=== PATIENT | male | born 1960 | race Caucasian/White ===

== ENCOUNTER 2016-03-31 14:45 | Inpatient (IN) | payer BC ==
[~2016-03-31] VITALS: Ht 177.8 cm; Wt 102.0 kg
[2016-03-31] MEDS ORDERED: ONDANSETRON 4MG/2ML VIAL (J2405) As Ordered ONE (15:37)
[2016-03-31] MEDS ORDERED: ISOVUE-370 76% 100ML VIAL (Q9967) As Ordered ONE (15:49)
[2016-03-31 15:52] LABS: BASO # 0.1 K/mm3 (0.0-0.2); BASO % 0.7 % (0.0-1.0); EOS # 0.2 K/mm3 (0.0-0.50); EOS % 1.7 % (0.0-3.0); LARGE UNSTAINED CELL # 0.1 K/mm3 (0.0-0.4); LARGE UNSTAINED CELL % 0.9 % (0.0-4.0); LYMPH # 1.3 K/mm3 (1.5-4.5); LYMPH % 14.7 % (24.0-44.0); MEAN CORPUSCULAR HEMOGLOBIN 29.6 pg (27.0-33.0); MEAN CORPUSCULAR HGB CONC 34.9 g/dl (32.0-36.5); MEAN CORPUSCULAR VOLUME 84.8 fl (80.0-96.0); MONO # 0.5 K/mm3 (0.0-0.8); MONO % 5.5 % (0.0-5.0); NEUTROPHILS # 6.8 K/mm3 (1.8-7.7); NEUTROPHILS % 76.5 % (36.0-66.0); PLATELET COUNT, AUTOMATED 192 k/mm3 (150-450); RED CELL DISTRIBUTION WIDTH 12.3 % (11.5-14.5); WHITE BLOOD COUNT 8.9 K/mm3 (4.0-10.0)
[2016-03-31 15:58] LABS: INR 1.03
[2016-03-31 16:21] LABS: ALBUMIN 3.9 GM/DL (3.2-5.2); ALBUMIN/GLOBULIN RATIO 1.39 (1.00-1.93); ALKALINE PHOSPHATASE 47 U/L (45-117); ALT/SGPT 35 U/L (12-78); ANION GAP 9 MEQ/L (8-16); AST/SGOT 26 U/L (15-37); BILIRUBIN,DIRECT 0.1 MG/DL (0.0-0.2); BILIRUBIN,TOTAL 0.7 MG/DL (0.2-1.0); BLOOD UREA NITROGEN 20 MG/DL (7-18); CALCIUM LEVEL 8.2 MG/DL (8.5-10.1); CARBON DIOXIDE LEVEL 27 MEQ/L (21-32); CHLORIDE LEVEL 105 MEQ/L (98-107); CREATININE FOR GFR 1.23 MG/DL (0.70-1.30); GLOMERULAR FILTRATION RATE > 60.0 (>56); GLUCOSE, FASTING 130 MG/DL (70-105); SODIUM LEVEL 141 MEQ/L (136-145); TOTAL PROTEIN 6.7 GM/DL (6.4-8.2)
--- NOTE | 2016-03-31 16:24 | REP ---
CT Head without contrast HISTORY: Trauma COMPARISON: None There is no intraparenchymal hemorrhage, acute infarct, mass or midline shift. The ventricular system is normal in appearance. There is no extra cerebral collection. There is no fracture. The visualized sinuses are clear. IMPRESSION: There is no intracranial lesion. Signed by Francois Lund MD 03/31/2016 04:16 P
[2016-03-31] MEDS ORDERED: ACETAMINOPHEN 325 MG TAB As Ordered ONE (17:41)
[2016-03-31] MEDS ORDERED: PERCOCET 5MG/325MG TAB PO PRN (18:00)
[2016-03-31] MEDS ORDERED: ALBUTEROL 90 MCG/ACT 8GM HFA INHALER INH PRN (18:00)
[2016-03-31] MEDS ORDERED: ONDANSETRON 4MG/2ML VIAL (J2405) IV PRN (18:00)
[2016-03-31] MEDS ORDERED: ALBU17IN INH (18:12)
[2016-03-31] MEDS ORDERED: IBUPOTC PO (18:12)
[2016-03-31] MEDS ORDERED: DRIS50002 PO (18:12)
--- NOTE | 2016-03-31 18:23 | REP ---
CT abdomen pelvis performed with IV contrast 03/31/2016 Indication: Fall, back pain Comparison: None Findings: Small amount of bibasilar atelectasis and/or scarring is noted. 9 mm hyperdense focus within the right dome of liver suggests small area of focal fatty sparing, possibly atypical hemangioma. Spleen, pancreas are unremarkable. Gallbladder is contracted without visualized stones or biliary dilatation. Adrenal glands are normal. Kidneys are without hydronephrosis or obstructing ureteral calculi bilaterally. There are no intrarenal masses or cysts. Stomach is moderately distended with ingested material and air. Small bowel is without obstruction. The terminal ileum and the appendix are normal. Abdominal aorta is of normal course and caliber there are no pathologically enlarged retroperitoneal nodes Bladder prostate is normal. There is moderate retained stool within the colon and scattered colonic diverticuli. There is no free air or ascites. The lower thoracic spine to include T9-T12, as well as lumbosacral spine and coccyx are without acute fracture or displacement. There is no pelvic fracture, or pelvic diastases the hips are without fracture or dislocation. Impression: No acute intra-abdominal or pelvic pathology Abdominal aorta without aneurysm, dissection, or adjacent retroperitoneal hematoma. Moderate gastric distension. Moderate retained colonic stool. No evidence of lower thoracic lumbosacral spine fracture. Pelvis without fracture, pelvic diastasis or dislocation. 10 mm hyperdense focus within the right dome of liver. Differential diagnosis includes small atypical cavernous hemangioma, hepatic adenoma. Recommend follow up gallbladder ultrasound Signed by Barbara Long MD 03/31/2016 06:15 P
--- NOTE | 2016-03-31 18:29 | HPE ---
DATE OF ADMISSION: 03/31/2015 PRIMARY CARE PHYSICIAN: Teresa Colorado at [facility]. CHIEF COMPLAINT: "I fell out of my truck." SUMMARY OF PRESENTATION: This 56-year-old gentleman was feeling fine when he awoke at 6 a.m. this morning. He was to work by approximately 7. 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 Around 1-1:30 this afternoon, he was climbing out of his cab. He turned as he heard some people talking and wanted to go to see them, was stepping out of his cab, and lost his balance. He remembers falling backward, landing on his backside, and then the remainder of his torso springing to the ground and cracking his head on a concrete floor. His feet were about 3-4 feet off the ground when he fell. Prior to the fall, he had no chest pain, no palpitations, no focal weakness, no unusual tastes or smells. He remembers everything that happened, although he does not suffer from falls and says he has a good sense of balance. ALLERGIES: No known drug allergies. MEDICATIONS AT HOME: Occasional albuterol inhaler and vitamin D supplement. PAST MEDICAL HISTORY: Notable for vitamin D deficiency and what is described as early emphysema. No surgical history. SOCIAL HISTORY: He quit smoking 17 years ago. He also has quit alcohol. He formerly smoked heavily and drank heavily. He is from [facility]. He works for the [employer] in [place]. FAMILY HISTORY: Notable for a mother who is 82, alive and well, a father who in his late 70s or early 80s with emphysema. REVIEW OF SYSTEMS: Notable for a headache currently. He has some photophobia. No runny nose. No sore throat. Not describing neck pain. No shortness of breath. He has had cough for about a month which he says is somewhat chronic. He does produce some sputum intermittently. No palpitations. No orthopnea. No paroxysmal nocturnal dyspnea. No abdominal pain. No change in bowel or bladder habits. Otherwise unremarkable. PHYSICAL EXAMINATION: VITAL SIGNS: Blood pressure is 134/80, pulse 75, respiratory rate 18, temperature 98.6, 96% on room air. Weight is 97.5 kg, with a body mass index of 30.8. GENERAL: He is awake, appropriately interactive. Pleasantly conversant. HEENT: Head is normocephalic. Sinuses are nontender. Pupils equal, round, and reactive. Anicteric. Not injected. Nasal septum is midline. Mucous membranes are moist. There is no tenderness to his mandible and temporomandibular joint (TMJ) or sinuses, his posterior skull and cervical spine. He has full range of motion of the neck. LUNGS: Breathing is symmetrical and rested. HEART: Regular rate and rhythm. Normal S1, S2. Electrocardiogram (EKG) shows a normal sinus rhythm. ABDOMEN: Soft, doughy, nontender. There is no tenderness over his pelvis, his hips bilaterally. There is no thoracic or lumbar spine tenderness. There is no sacral tenderness. There is no bruising noted. EXTREMITIES: He is moving all four extremities. NEUROLOGIC: Cranial nerves II through XII are grossly intact. PSYCHIATRIC: He has a somewhat flattened affect. LABORATORY DATA: White cell count is 8.9, hemoglobin 15.7, platelets of 192. INR is 1.03. Sodium is 141, potassium 4.0, chloride 105, carbon dioxide 27, BUN 20, creatinine 1.23, calcium 8.2. IMAGING: CT of the abdomen and pelvis with contrast shows a 10 mm hyperdense focus in the right dome of the liver. No acute intra-abdominal or pelvic pathology. Moderate gastric distention. Moderate retained colonic stool. No evidence of lower thoracic, lumbosacral or spinal fracture. No pelvic fracture or dislocation. Chest x-ray showed no acute disease. Head CT showed no acute disease. C-spine x-ray shows no acute disease. CT of maxillofacial without contrast shows no acute disease. ASSESSMENT: This is a 56-year-old with a fall, trauma and concussion. PLAN: 1. Concussion. The patient will be monitored overnight on telemetry. I believe the cause of the fall was mechanical and that his memory of the fall may be limited by his injury to his head. We will monitor him overnight. There are no signs or symptoms of other more insidious causes of fall. We will do neurologic checks. We will pursue an MRI to look for occult areas of brain injury apart from bleeding. Any pain that he is experiencing will be treated with opiates and Tylenol. 2. Deep venous thrombosis (DVT) prophylaxis will be determined in the morning. Hopefully, it will just be ambulation. 3. The patient has a history of emphysema. We will make albuterol available as needed. 4. The patient has vitamin D deficiency. He can continue his weekly vitamin D at home.
[2016-03-31] MEDS ORDERED: PERCOCET 5MG/325MG TAB As Ordered ONE (19:26)
--- NOTE | 2016-03-31 19:32 | REP ---
SINGLE VIEW CHEST: COMPARISON: 05/09/2011 There is no evidence of acute infiltrate. No pleural effusion is seen. The heart is normal in size. The mediastinal silhouette is unremarkable. The visualized osseous structures are intact. IMPRESSION: No acute pulmonary disease. Signed by Aldo Liriano MD 04/01/2016 05:15 P
--- NOTE | 2016-03-31 19:50 | REP ---
MAXILLOFACIAL CT WITHOUT CONTRAST: HISTORY: Trauma. Minimal mucosal thickening is present in the right ethmoid and frontal sinuses. The remaining sinuses are clear. The ostiomeatal units are patent. The middle and inferior nasal turbinates are partially paradoxical. There is jens bullosa of the left middle nasal turbinate. There is minimal deviation of the nasal septum to the right. The cribriform plate, medial bond of the orbits and optic canals are intact. The carotid canals form a segment of the posterolateral bond of the sphenoid sinus. There is no fracture. IMPRESSION: Sinus mucosal thickening as described above. Signed by Francois Lund MD 03/31/2016 07:52 P
--- NOTE | 2016-03-31 19:58 | REP ---
CT CERVICAL SPINE WITHOUT CONTRAST: HISTORY: Trauma. There is no acute fracture or subluxation. Disc bulges are present at the C3-4 and C4-5 levels. A disc bulge with associated osteophyte formation is present at the C5-6 level. There is minimal narrowing of the spinal canal. Uncinate process hypertrophy is present at the C5-6 level. This produces mild and minimal narrowing of the right and left C5 neural foramina respectively. The remaining neural foramina are patent. The C5-6 intervertebral disc is decreased in height consistent with disc degeneration. IMPRESSION: 1. There is no acute fracture or subluxation. 2. There is cervical spondylosis at the C3-4 through C5-6 levels. Signed by Francois Lund MD 04/01/2016 08:17 A
--- NOTE | 2016-03-31 20:13 | EDDOCDS ---
Physician Documentation [facility] Name: Vj Andino Age: 56 yrs Sex: Male : 1960 Arrival Date: 03/31/2016 Time: 14:45 Bed MRI Private MD: Disposition: 03/31/16 17:20 Hospitalization ordered by Julio Ardon for Inpatient Admission. Preliminary diagnosis are Syncope and collapse, Fall (on) (from) unspecified stairs and steps, Concussion with loss of consciousness of unspecified duration, Low back pain. - Bed requested for PCU. - Status is Inpatient Admission. mar - Condition is Stable. - Problem is new. - Symptoms are unchanged. Historical: - Allergies: No known drug Allergies; - Home Meds: 1. Vitamin D Oral Unknown weekly - PMHx: vitamin D deficiancy; - PSHx: none; - Social history: Smoking status: Patient states former smoker of tobacco. No barriers to communication noted, The patient speaks fluent Canadian, Speaks appropriately for age. - Family history: Not pertinent. - : The pt / caregiver states he / she is not on anticoagulants. Home medication list is obtained from the patient. - Exposure Risk Screening:: None identified. Vital Signs: 03/31 15:13 BP 134 / 80; Pulse 75; Resp 18; Temp 98.6(TE); Pulse Ox 96% on R/A; Weight 97.52 kg / dem1 214.99 lbs; Height 5 ft. 10 in. (177.80 cm); Pain 6/10; 19:50 BP 128 / 71; Pulse 70; Resp 16; Pulse Ox 100% on 2 lpm NC; Pain 8/10; cf2 20:03 BP 132 / 78; Pulse 72; Resp 16; Temp 98.0; Pulse Ox 99% on 2 lpm NC; Pain 4/10; cf2 20:05 BP 118 / 74 RA Supine (auto/lg); Pulse 88; Resp 16; Temp 97.6; Pulse Ox 92% on R/A; rs6 15:13 Body Mass Index 30.85 (97.52 kg, 177.80 cm) dem1 20:05 pt states that he is not in pain for 0-10 scale "just doesn't feel good and am really rs6 dizzy" MDM: 15:27 IV Saline Lock ordered. ml 15:27 Seizure Precautions ordered. ml 15:28 CT Head Without Contrast Ordered. EDMS 15:28 CT Spine,Cervical W/o Contrast Ordered. EDMS 15:28 CBC with Diff Ordered. EDMS 15:28 MED Profile Ordered. EDMS 15:28 PT/INR Ordered. EDMS 15:28 PTT Ordered. EDMS 15:28 CIP Ordered. EDMS 15:28 Troponin Ordered. EDMS 15:28 Undress patient ordered. ml 15:28 Misc. Nursing Order ordered. ml 15:28 Chest, 1 View Ordered. EDMS 15:29 Type & Screen Ordered. EDMS 15:29 ECG WITH READING ER PHYS+CARDIAG ordered. EDMS 15:29 NS 0.9% 1000 ml IV at 80 mL/hr continuous ordered. ml 15:29 Ondansetron 4 mg IVP once ordered. ml 15:30 CT Maxilofacial W/out Contrast Ordered. EDMS 15:48 CT ABD & PELVIS: IV Contrast Only Ordered. EDMS 15:52 LIVER PROFILE Ordered. EDMS 16:29 CBC with Diff Reviewed. ml 16:29 MED Profile Reviewed. ml 16:29 PT/INR Reviewed. ml 16:29 PTT Reviewed. ml 16:29 CIP Reviewed. ml 16:29 Troponin Reviewed. ml 16:29 LIVER PROFILE Reviewed. ml 16:47 Type & Screen Reviewed. ml 16:47 CT Head Without Contrast Reviewed. ml 17:17 Acetaminophen Tablet 650 mg PO once ordered. ml 17:50 Admission / Observation Status ordered. EDMS 17:50 REGULAR DIET ordered. EDMS 18:09 MRI Brain without Contrast Ordered. EDMS 19:31 COMPLETE BLOOD COUNT Ordered. EDMS 19:31 COMPLETE COMPHRENSIVE METABOLI Ordered. EDMS 19:31 MAGNESIUM LEVEL Ordered. EDMS 19:32 Financial registration complete. gjb 19:35 [facility] Payment Agreement was scanned into [employer] and attached to record. gjb 19:46 oxyCODONE-acetaminophen 5 mg-325 mg 2 tabs PO once ordered. cf2 Administered Medications: 15:43 Drug: NS 0.9% 1000 ml [sodium chloride 0.9 % injection solution] Route: IV; Rate: 80 dsf mL/hr; Site: left antecubital; 15:43 Drug: Ondansetron 4 mg [ondansetron HCl 2 mg/mL intravenous solution (2 mL)] Route: dsf IVP; Site: left antecubital; 17:50 Drug: Acetaminophen 650 mg [acetaminophen 325 mg tablet (2 tabs)] Route: PO; dsf 19:46 Drug: oxyCODONE-acetaminophen 2 tabs [oxycodone-acetaminophen 5 mg-325 mg tablet (2 cf2 tabs)] Route: PO; 19:46 Follow up: Response: Pain is decreased cf2 Signatures: Dispatcher [employer] EDMS Larisa Amezquita MD MD ml Mariam Chavez, RN RN Ekta Guillory, [employer] ml3 Nicole North RN RN hs1 Talisha Lopez Christina, RN RN cf2 Jes Zamora RN f The chart was reviewed and I authenticate all verbal orders and agree with the evaluation and treatment provided.Corrections: (The following items were deleted from the chart) 15:50 15:29 LIVER PROFILE+LAB ordered. EDMS EDMS 17:24 15:30 Pelvis+XR ordered. EDMS EDMS Attachments: 19:35 [facility] Payment Agreement [email or web address]
--- NOTE | 2016-03-31 20:13 | EDDOCDS ---
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 Pt fall unwitnessed and he remembers waking up yelling for help. Pt reports pain in tailbone. EMS state patient was immobilized prior to EMS arrival. Unable to obtain IV in field. Pt reports previous injury to tail bone and feels could be re injury. Adult Sepsis Screening: The patient does not have new or worsening altered mentation. Patient's respiratory rate is less than 22. Systolic blood pressure is greater than 100. Patient has a qSOFA score of 0- Negative Sepsis Screen. Suicide/Homicide risk assessment- the patient denies having any suicidal and/or homicidal ideations and does not present with any other emotional, behavioral or mental health complaints. Status: Patient is not a services clerk or dependent. Transition of care: patient was not received from another setting of care. 14:51 Acuity: XIMENA Level 3 hs1 14:51 Method Of Arrival: Ambulance hs1 Triage Assessment: 14:56 General: Appears in no apparent distress, Behavior is appropriate for age, cooperative. hs1 Pain: Location: scalp and buttocks Pain currently is 6 out of 10 on a pain scale. Pain: Quality of pain is described as "feels like a broke it again ". Neurological: Level of Consciousness is awake, alert, obeys commands, Oriented to person, place, time. Cardiovascular: No deficits noted. Respiratory: Airway is patent Respiratory effort is even, unlabored, Respiratory pattern is regular, symmetrical. GI: Reports nausea. Derm: Skin is pink, warm & dry. normal. 20:06 Pt Declines HIV testing. cf2 Historical: - Allergies: No known drug Allergies; - Home Meds: 1. Vitamin D Oral Unknown weekly - PMHx: vitamin D deficiancy; - PSHx: none; - Social history: Smoking status: Patient states former smoker of tobacco. No barriers to communication noted, The patient speaks fluent Lithuanian, Speaks appropriately for age. - Family history: Not pertinent. - : The pt / caregiver states he / she is not on anticoagulants. Home medication list is obtained from the patient. - Exposure Risk Screening:: None identified. Screenin:07 Screening information is obtained from the patient. Fall risk: At risk due to gait cf2 disturbance, prior history of falls, dizziness. Assistance ADL's: Requires assistance with dressing, assistance is provided by ambulation, assistance is provided by. Abuse/DV Screen: The patient / caregiver reports he/she is: not in a situation that causes fear, pain or injury. Nutritional screening: No deficits noted. Advance Directives: Further advance directive information is declined. home support is adequate. Assessment: 15:08 General: Pt log rolled maintaining C spine precautions and back board removed. Pt hs1 states feeling much better not that he is off the board. Back board noted to have blood where patients back of head was. unknown injury to head at this time. . 15:42 General: Called to patient's bedside by Dr. Liriano. Per Dr. Liriano she was concerned that [facility] patient would have a seizure because patient went from normal skin color to being pale in color, remains alert and oriented x 3. In to assess patient, patient reported that he just didn't feel right. Patient noted to be shakey. Remained with patient and transported patient to C4 per Service Car Operator Dominga Cherry RN and Dr. Liriano. While in C4, IV line started in right antecubital and labs drawn, arrived and updated to current situation and relayed message through charge nurse Nany August RN to let Dr. Liriano whom was on phone with provider that would like an update. Seizure pads put in place.. 15:44 General: Appears uncomfortable, Behavior is appropriate for age. Pain: Location: head dsf Pain currently is 5 out of 10 on a pain scale. Quality of pain is described as aching. Neurological: Level of Consciousness is awake, alert, Reports dizziness, headache. Cardiovascular: Capillary refill < 3 seconds Rhythm is sinus rhythm No ectopy. Respiratory: Airway is patent Respiratory effort is even, unlabored, Respiratory pattern is regular, symmetrical. Derm: Skin is dry, Skin is pale, Skin temperature is cool. 16:44 General: Appears in no apparent distress, Behavior is appropriate for age. Pain: dsf Location: head Pain currently is 5 out of 10 on a pain scale. Neurological: Level of Consciousness is awake, alert, Reports gets very dizzy with movement . Cardiovascular: Capillary refill < 3 seconds Heart tones S1 S2 present. Respiratory: Airway is patent Respiratory effort is even, unlabored, Respiratory pattern is regular, symmetrical, Breath sounds are clear bilaterally. GI: Abdomen is non- distended Bowel sounds present X 4 quads. Abd is soft and non tender X 4 quads. Derm: Skin is dry, Skin is pale, Skin temperature is warm. 17:15 General: pt states up to date with tetanus . dsf 17:50 General: pt sitting up to take Tylenol po. pt c/o dizziness. dsf 18:00 Adult Sepsis Screening: The patient does not have new or worsening altered mentation. dsf Patient's respiratory rate is less than 22. Systolic blood pressure is greater than 100. Patient has a qSOFA score of 0- Negative Sepsis Screen. General: Appears in no apparent distress, Behavior is appropriate for age, cooperative. Pain: Location: head. Neurological: Level of Consciousness is awake, alert. Cardiovascular: No deficits noted. Respiratory: No deficits noted. Derm: Skin is dry, Skin is pale, Skin temperature is warm. 19:44 Reassessment: Patient appears in no apparent distress at this time. Patient denies pain cf2 at this time. Patient states feeling better. 19:48 General: Patient with complaint of increasing head pain especially with minimal cf2 movement. Patient medicated per admission orders. Patient states dinner tray "is just too much food". Patient offered and eating a turkey sandwich. Called PCU and gave report. . 20:03 General: Preparing patient for transport to floor. cf2 Vital Signs: 15:13 BP 134 / 80; Pulse 75; Resp 18; Temp 98.6(TE); Pulse Ox 96% on R/A; Weight 97.52 kg; dem1 Height 5 ft. 10 in. (177.80 cm); Pain 6/10; 19:50 BP 128 / 71; Pulse 70; Resp 16; Pulse Ox 100% on 2 lpm NC; Pain 8/10; cf2 20:03 BP 132 / 78; Pulse 72; Resp 16; Temp 98.0; Pulse Ox 99% on 2 lpm NC; Pain 4/10; cf2 20:05 BP 118 / 74 RA Supine (auto/lg); Pulse 88; Resp 16; Temp 97.6; Pulse Ox 92% on R/A; rs6 15:13 Body Mass Index 30.85 (97.52 kg, 177.80 cm) dem1 20:05 pt states that he is not in pain for 0-10 scale "just doesn't feel good and am really rs6 dizzy" Vitals: 15:13 Log In Time N/A - ambulance arrival. [facility] ED Course: 14:46 Patient visited by Precious Melendez, Manager Wholesale. lbd 14:46 Patient moved to Waiting lbd 14:47 Patient moved to 21 lbd 14:53 Triage Initiated hs1 15:13 Pt greeted and oriented to ED. Patient advised of names of staff involved in care, [facility] location of call crump, wait times and NPO status. Patient has correct armband on for positive identification. Placed in gown. Bed in low position. Call light in reach. Side rails up X2. electronic device monitor on. Pulse ox on. NIBP on. 15:14 Patient visited by Michelle Thompson. dem1 15:17 Larisa Amezquita MD is Attending Physician. ml 15:17 Patient visited by Larisa Amezquita MD. ml 15:31 Patient moved to 4 ml 15:41 EKG done. (by ED staff). Reviewed by Larisa Amezquita MD. ct3 15:42 Patient visited by Bridget Vázquez PCA. ct3 15:42 Inserted saline lock: 20 gauge in left antecubital area and blood collected. Labs jmb drawn. (by ED staff). Sent per order to lab. 15:43 Troponin Sent. dsf 15:43 CIP Sent. dsf 15:43 Type & Screen Sent. dsf 15:44 PTT Sent. dsf 15:44 PT/INR Sent. dsf 15:44 MED Profile Sent. dsf 15:44 CBC with Diff Sent. dsf 15:45 Patient visited by Jes Zamora,AAKASH. dsf 15:[address] dsf 16:09 Patient moved to 4 ek2 16:37 CT Head Without Contrast Returned. EDMS 17:15 Patient visited by Jes Zamora RN. dsf 17:19 Julio Ardon DO is Hospitalizing Provider. ml 17:50 Patient visited by Jes Zamora RN. dsf 18:24 Patient moved to MRI dsf 18:42 Patient visited by Bridget Vázquez, WAREHOUSE ASSOCIATE DRIVER. ct3 18:42 Diet: Patient given regular meal. ct3 18:52 Patient visited by Jes Zamora RN. dsf 18:59 CT ABD & PELVIS: IV Contrast Only Returned. EDMS 19:01 Kathryn Mascorro,AAKASH is Primary Nurse. cf2 19:01 Patient visited by Kathryn Mascorro RN. cf2 19:35 [facility] Payment Agreement was scanned into [employer] and attached to record. gjb 19:50 Chest, 1 View Returned. EDMS 20:01 Patient visited by Kathryn Mascorro RN. cf2 20:07 Patient visited by Melissa Wilson, KENNEY. rs6 20:07 The patient / caregiver is instructed regarding the plan of care and ED course. Report cf2 given to [employer]AIL GREETING CARD MERCHANDISER. Property :Personal belongings accompany Pt. Door closed. Noise minimized. Visitors limited. Lights dimmed. Moved to private room. Diet tray given. Diet tray ordered. PO fluids given. Verbal reassurance given. Warm blanket given. Pillow given. Head of bed elevated. Diet: Patient given snack. Tolerated well. 20:07 No procedures done that require assistance. cf2 Administered Medications: 15:43 Drug: NS 0.9% 1000 ml [sodium chloride 0.9 % injection solution] Route: IV; Rate: 80 dsf mL/hr; Site: left antecubital; 15:43 Drug: Ondansetron 4 mg [ondansetron HCl 2 mg/mL intravenous solution (2 mL)] Route: dsf IVP; Site: left antecubital; 17:50 Drug: Acetaminophen 650 mg [acetaminophen 325 mg tablet (2 tabs)] Route: PO; dsf 19:46 Drug: oxyCODONE-acetaminophen 2 tabs [oxycodone-acetaminophen 5 mg-325 mg tablet (2 cf2 tabs)] Route: PO; 19:46 Follow up: Response: Pain is decreased cf2 Order Results: Lab Order: CBC with Diff; SPEC'M 03/31/16 15:39 Test: WHITE BLOOD COUNT; Value: 8.9; Range: 4.0-10.0; Units: K/mm3; Status: F Test: RED BLOOD COUNT; Value: 5.33; Range: 4.30-6.10; Units: M/mm3; Status: F Test: HEMOGLOBIN; Value: 15.7; Range: 14.0-18.0; Units: g/dl; Status: F Test: HEMATOCRIT; Value: 45.2; Range: 42.0-52.0; Units: %; Status: F Test: MEAN CORPUSCULAR VOLUME; Value: 84.8; Range: 80.0-96.0; Units: fl; Status: F Test: MEAN CORPUSCULAR HEMOGLOBIN; Value: 29.6; Range: 27.0-33.0; Units: pg; Status: F Test: MEAN CORPUSCULAR HGB CONC; Value: 34.9; Range: 32.0-36.5; Units: g/dl; Status: F Test: RED CELL DISTRIBUTION WIDTH; Value: 12.3; Range: 11.5-14.5; Units: %; Status: F Test: PLATELET COUNT, AUTOMATED; Value: 192; Range: 150-450; Units: k/mm3; Status: F Test: NEUTROPHILS %; Value: 76.5; Range: 36.0-66.0; Abnormal: Above high normal; Units: %; Status: F Test: LYMPH %; Value: 14.7; Range: 24.0-44.0; Abnormal: Below low normal; Units: %; Status: F Test: MONO %; Value: 5.5; Range: 0.0-5.0; Abnormal: Above high normal; Units: %; Status: F Test: EOS %; Value: 1.7; Range: 0.0-3.0; Units: %; Status: F Test: BASO %; Value: 0.7; Range: 0.0-1.0; Units: %; Status: F Test: LARGE UNSTAINED CELL %; Value: 0.9; Range: 0.0-4.0; Units: %; Status: F Test: NEUTROPHILS #; Value: 6.8; Range: 1.8-7.7; Units: K/mm3; Status: F Test: LYMPH #; Value: 1.3; Range: 1.5-4.5; Abnormal: Below low normal; Units: K/mm3; Status: F Test: MONO #; Value: 0.5; Range: 0.0-0.8; Units: K/mm3; Status: F Test: EOS #; Value: 0.2; Range: 0.0-0.50; Units: K/mm3; Status: F Test: BASO #; Value: 0.1; Range: 0.0-0.2; Units: K/mm3; Status: F Test: LARGE UNSTAINED CELL #; Value: 0.1; Range: 0.0-0.4; Units: K/mm3; Status: F Lab Order: MED Profile; SPEC'M 03/31/16 15:39 Test: GLUCOSE, FASTING; Value: 130; Range: 70-105; Abnormal: Above high normal; Units: MG/DL; Status: F Test: BLOOD UREA NITROGEN; Value: 20; Range: 7-18; Abnormal: Above high normal; Units: MG/DL; Status: F Test: CREATININE FOR GFR; Value: 1.23; Range: 0.70-1.30; Units: MG/DL; Status: F Test: GLOMERULAR FILTRATION RATE; Value: > 60.0; Range: >56; Status: F Test: SODIUM LEVEL; Value: 141; Range: 136-145; Units: MEQ/L; Status: F Test: POTASSIUM SERUM; Value: 4.0; Range: 3.5-5.1; Units: MEQ/L; Status: F Test: CHLORIDE LEVEL; Value: 105; Range: 98-107; Units: MEQ/L; Status: F Test: CARBON DIOXIDE LEVEL; Value: 27; Range: 21-32; Units: MEQ/L; Status: F Test: ANION GAP; Value: 9; Range: 8-16; Units: MEQ/L; Status: F Test: CALCIUM LEVEL; Value: 8.2; Range: 8.5-10.1; Abnormal: Below low normal; Units: MG/DL; Status: F Test Note: ; Units are mL/min/1.73 m2 Chronic Kidney Disease Staging per NKF: Stage I & II GFR >=60 Normal to Mildly Decreased Stage III GFR 30-59 Moderately Decreased Stage IV GFR 15-29 Severely Decreased Stage V GFR <15 Very Little GFR Left ESRD GFR <15 on PRO SHOP ATTENDANT Lab Order: PT/INR; [facility] 03/31/16 15:39 Test: PROTHROMBIN TIME; Value: 13.6; Range: 12.3-14.5; Units: SECONDS; Status: F Test: INR; Value: 1.03; Status: F Test Note: ; THERAPUTIC HUMAN INR VALUES INDICATIONS NORMAL RANGES PROPHYLAXIS/TREATMENT OF: VENOUS THROMBOSIS 2.0-3.0 PULMONARY EMBOLISM 2.0-3.0 PREVENTION OF SYSTEMIC EMBOLISM FROM: TISSUE HEART VALVES 2.0-3.0 ACUTE MYOCARDIAL INFARCTION 2.0-3.0 VALVULAR HEART DISEASE 2.0-3.0 ATRIAL FIBRILLATION 2.0-3.0 MECHANICAL VALVES(HIGH RISK) 2.5-3.5 RECURRENT MYOCARDIAL INFARCTION 2.5-3.5 Lab Order: PTT; [facility] 03/31/16 15:39 Test: PARTIAL THROMBOPLASTIN TIME; Value: 27.2; Range: 26.6-37.1; Units: SECONDS; Status: F Lab Order: Type & Screen; [facility] 03/31/16 15:39 Test: BLOOD TYPE; Value: O NEG; Status: F Test: AB SCREEN (INDIRECT ADONAY)GEL; Value: NEGATIVE; Status: F Lab Order: CIP; [facility] 03/31/16 15:39 Test: CPK CREATINE PHOSPHOKINASE; Value: 169; Range: 39-308; Units: U/L; Status: F Test: CK-MB VALUE MASS; Value: 3.4; Range: 0.0-3.6; Units: NG/ML; Status: F Test: MB/CK RELATIVE INDEX; Value: 2.01; Range: < OR =4; Status: F Test Note: ; DIAGNOSIS CRITERIA MMB ng/ml Relative Index (RI) NON-AMI < or = 5 N/A LIRIANO ZONE > 5 < or = 4 AMI > 5 > 4 Lab Order: Troponin; [facility] 03/31/16 15:39 Test: TROPONIN I; Value: < 0.02; Range: < 0.10; Units: NG/ML; Status: F Test Note: ; Troponin I Reference Interval for Sensorly LOCI: 99th Percentile= 0.00-0.045 ng/ml Risk Stratification: <= 0.10 ng/ml Decreased Risk for Adverse Clinical Events. 0.10-1.50 ng/ml Increased Risk for Adverse Clinical Events. Evaluation of additional criterion and/or repeat testing in 2-6 hours is suggested to rule out myocardial damage. >= 1.50 ng/ml Indicative of Myocardial Injury. Lab Order: LIVER PROFILE; SPEC'M 03/31/16 15:39 Test: AST/SGOT; Value: 26; Range: 15-37; Units: U/L; Status: F Test: ALT/SGPT; Value: 35; Range: 12-78; Units: U/L; Status: F Test: ALKALINE PHOSPHATASE; Value: 47; Range: 45-117; Units: U/L; Status: F Test: BILIRUBIN,TOTAL; Value: 0.7; Range: 0.2-1.0; Units: MG/DL; Status: F Test: BILIRUBIN,DIRECT; Value: 0.1; Range: 0.0-0.2; Units: MG/DL; Status: F Test: TOTAL PROTEIN; Value: 6.7; Range: 6.4-8.2; Units: GM/DL; Status: F Test: ALBUMIN; Value: 3.9; Range: 3.2-5.2; Units: GM/DL; Status: F Test: ALBUMIN/GLOBULIN RATIO; Value: 1.39; Range: 1.00-1.93; Status: F Radiology Order: CT Head Without Contrast Test: CT Head Without Contrast REASON FOR EXAMINATION: fall, hit head; CT Head without contrast; ; HISTORY: Trauma; ; COMPARISON: None; ; There is no intraparenchymal hemorrhage, acute infarct, mass or midline shift.; The ventricular system is normal in appearance. There is no extra cerebral; collection. There is no fracture. The visualized sinuses are clear.; ; IMPRESSION: There is no intracranial lesion.; ; ; ; ; Signed by; Francois Lund MD 03/31/2016 04:16 P; Radiology Order: Chest, 1 View Test: Chest, 1 View REASON FOR EXAMINATION: fall; SINGLE VIEW CHEST:; ; COMPARISON: 05/09/2011; ; There is no evidence of acute infiltrate.; No pleural effusion is seen.; The heart is normal in size.; The mediastinal silhouette is unremarkable.; The visualized osseous structures are intact.; ; IMPRESSION:; No acute pulmonary disease.; ; Unreviewed; Radiology Order: CT ABD & PELVIS: IV Contrast Only Test: CT ABD & PELVIS: IV Contrast Only REASON FOR EXAMINATION: fall, back pain; CT abdomen pelvis performed with IV contrast 03/31/2016; ; Indication: Fall, back pain; ; Comparison: None; ; Findings: Small amount of bibasilar atelectasis and/or scarring is noted.; ; 9 mm hyperdense focus within the right dome of liver suggests small area of focal; fatty sparing, possibly atypical hemangioma. Spleen, pancreas are unremarkable.; Gallbladder is contracted without visualized stones or biliary dilatation.; Adrenal glands are normal. Kidneys are without hydronephrosis or obstructing; ureteral calculi bilaterally. There are no intrarenal masses or cysts. Stomach; is moderately distended with ingested material and air. Small bowel is without; obstruction. The terminal ileum and the appendix are normal. Abdominal aorta is; of normal course and caliber there are no pathologically enlarged retroperitoneal; nodes; ; Bladder prostate is normal. There is moderate retained stool within the colon; and scattered colonic diverticuli. There is no free air or ascites.; ; The lower thoracic spine to include T9-T12, as well as lumbosacral spine and; coccyx are without acute fracture or displacement.; ; There is no pelvic fracture, or pelvic diastases the hips are without fracture or; dislocation.; ; Impression:; ; No acute intra-abdominal or pelvic pathology; ; Abdominal aorta without aneurysm, dissection, or adjacent retroperitoneal; hematoma. Moderate gastric distension. Moderate retained colonic stool.; ; No evidence of lower thoracic lumbosacral spine fracture. Pelvis without; fracture, pelvic diastasis or dislocation.; ; 10 mm hyperdense focus within the right dome of liver. Differential diagnosis; includes small atypical cavernous hemangioma, hepatic adenoma. Recommend follow; up gallbladder ultrasound; ; ; ; ; Signed by; Barbara Long MD 03/31/2016 06:15 P; Outcome: 17:20 Decision to Hospitalize by Provider. ml 20:05 Discharge Assessment: Patient awake, alert and oriented x 3. No cognitive and/or cf2 functional deficits noted. Patient verbalized understanding of disposition instructions. Patient awake and alert. Oriented to person, place and time. Patient verbalized understanding of disposition instructions. Patient unable to independently bathe himself/herself, unable to independently dress himself/herself, unable to independently attend to toileting needs, unable to independently transfer in/out of bed and/or chair, patient administered narcotics - yes. The following High Risk Discharge criteria are identified: Yes, Admitted to PCU accompanied by nurse, accompanied by tech, family with patient, via stretcher, with oxygen, on monitor, with chart. Condition: stable. CT Study completed. MRI Study completed. Property :Personal belongings accompany Pt. and with . 20:11 Patient left the ED. eduardo Signatures: Dispatcher [employer] EDMS Larisa Amezquita MD MD ml Precious Melendez, Manager Wholesale Unit lbd Mariam Chavez RN Nicole Cabrera RN RN hs1 Bridget Vázquez, WAREHOUSE ASSOCIATE DRIVER WAREHOUSE ASSOCIATE DRIVER ct3 Jes ZamoraRN RN f Michelle Thompson dem1 Simon CarranzaRN RN Hakan Palmer ek2 Melissa Wilson, WAREHOUSE ASSOCIATE DRIVER WAREHOUSE ASSOCIATE DRIVER rs6 Talisha Lopez gjb Kathryn Mascorro,RN RN cf2 Corrections: (The following items were deleted from the chart) 15:46 15:42 General: Called to patient's bedside by Dr. Liriano. Per Dr. Liriano she was concerned [facility] that patient would have a seizure because patient went from normal skin color to being pale in color, remains alert and oriented x 3. In to assess patient, patient reported that he just didn't feel right. Patient noted to be shakey. Remained with patient and transported patient to C4 per Service Car Operator Dominga Cherry RN and Dr. Liriano. While in C4, IV line started in right antecubital and labs drawn, arrived and updated to current situation and relayed message through charge nurse Nany August RN to let Dr. Liriano whom was on phone with provider that would like an update. . balbir 15:50 15:43 LIVER PROFILE+LAB sent. [facility] MTDD
[2016-03-31 20:15] VITALS: BP 138/86
--- NOTE | 2016-03-31 22:47 | REP ---
MRI BRAIN WITHOUT CONTRAST: HISTORY: Concussion. COMPARISON: 03/31/2016 There are no areas of abnormal signal intensity in the brain. There is no intraparenchymal hemorrhage, infarct, mass or midline shift. The sella turcica is partially empty. The ventricular system is normal in appearance. There is no extracerebral collection. Mucosal thickening is present in the right ethmoid and frontal sinuses. IMPRESSION: There is no intracranial lesion. Signed by Francois Lund MD 04/01/2016 08:20 A
[2016-03-31 23:59] VITALS: BP 111/67
[2016-04-01 04:45] VITALS: BP 127/78
[2016-04-01 05:50] LABS: MEAN CORPUSCULAR HGB CONC 34.6 g/dl (32.0-36.5); MEAN CORPUSCULAR VOLUME 86.7 fl (80.0-96.0); RED CELL DISTRIBUTION WIDTH 12.9 % (11.5-14.5); WHITE BLOOD COUNT 9.7 K/mm3 (4.0-10.0)
[2016-04-01 05:58] LABS: ALBUMIN 3.4 GM/DL (3.2-5.2); ALBUMIN/GLOBULIN RATIO 1.21 (1.00-1.93); ALKALINE PHOSPHATASE 36 U/L (45-117); ALT/SGPT 30 U/L (12-78); ANION GAP 7 MEQ/L (8-16); AST/SGOT 16 U/L (15-37); BILIRUBIN,TOTAL 1.1 MG/DL (0.2-1.0); BLOOD UREA NITROGEN 15 MG/DL (7-18); CALCIUM LEVEL 8.4 MG/DL (8.5-10.1); CARBON DIOXIDE LEVEL 26 MEQ/L (21-32); CHLORIDE LEVEL 107 MEQ/L (98-107); GLOMERULAR FILTRATION RATE > 60.0 (>56); GLUCOSE, FASTING 108 MG/DL (70-105); MAGNESIUM LEVEL 2.1 MG/DL (1.8-2.4); POTASSIUM SERUM 3.8 MEQ/L (3.5-5.1); SODIUM LEVEL 140 MEQ/L (136-145); TOTAL PROTEIN 6.2 GM/DL (6.4-8.2)
[2016-04-01 07:30] VITALS: BP 131/84
[2016-04-01] MEDS: KETOROLAC 30 MG/ML VIAL (J1885) IV PRN ×2 (10:10→16:41)
[2016-04-01 12:00] VITALS: BP 129/76
--- NOTE | 2016-04-01 12:31 | IPN ---
DATE: 04/01/2016 Mr. Andino is complaining of a headache this morning. He does have resolution of the ringing in his ears. He has had nausea with position changes over the course of the night. He is feeling better in that regard. At this point, still cannot adequately remember the events immediately leading up to the fall. Temperature is 96.7, pulse 74, respiratory rate 20, blood pressure 131/84, 96% on room air. No significant arrhythmia on telemetry. Weight is 102.6 kg. Body Mass Index (BMI) is 32.5. He is awake, appropriately interactive, pleasantly conversant. Breathing is symmetrical and rested. Pupils are equal, round and reactive, anicteric. Mucous membranes are moist. NECK: Supple. HEART: Regular rate and rhythm. ABDOMEN: Soft, doughy, nontender. He is moving all four extremities. VITAL SIGNS: White cell count is 9.7, hemoglobin 15.4, platelets of 182. BUN is 15, creatinine 1. ASSESSMENT: This is a 56-year-old with fall trauma and concussion. PLAN: 1. For concussion, the patient has had negative neuro checks. We will continue to monitor him on telemetry, as I am concerned about the reason for his fall. We will get an echocardiogram today. I have also ordered an EEG and we will ask Dr. Flores to see the patient in consultation. MRI was remarkably unremarkable. 2. The patient has a history of emphysema and seems to be compensated. 3. The patient has vitamin D deficiency. 4. Deep vein thrombosis (DVT) prophylaxis will be early ambulation.
[2016-04-01 16:00] VITALS: BP 144/81
--- NOTE | 2016-04-01 19:43 | ECGEPIP ---
Stationary ECG Study [facility] - ED Test Date: 2016-03-31 Pat Name: MIRELA MARSHALL Department: Room: - Gender: M [employer]: ct : 1960 Requested By: Larisa Amezquita Order Number: [id number] Reading MD: Vero Lopez Measurements Intervals [place] Rate: 83 P: 49 WI: 174 QRS: 40 QRSD: 89 T: 30 QT: 365 QTc: 429 Interpretive Statements SINUS RHYTHM WITH MARKED SINUS ARRHYTHMIA POSSIBLE INFERIOR MA NO PRIOR FOR COMPARISON Electronically Signed On 04-01-2016 19:43:18 EST by Vero Lopez
[2016-04-01 20:00] VITALS: BP 114/83
[2016-04-01] MEDS: ZONISAMIDE 50 MG CAP (ZONEGRAN) PO SCH (21:50)
[2016-04-01] MEDS: PERCOCET 5MG/325MG TAB PO PRN (23:57)
[2016-04-01 23:59] VITALS: BP 110/72
[2016-04-02 04:00] VITALS: BP 103/66
[2016-04-02 06:07] LABS: MEAN CORPUSCULAR HEMOGLOBIN 29.7 pg (27.0-33.0); MEAN CORPUSCULAR HGB CONC 34.7 g/dl (32.0-36.5); MEAN CORPUSCULAR VOLUME 85.7 fl (80.0-96.0); RED CELL DISTRIBUTION WIDTH 12.3 % (11.5-14.5)
[2016-04-02 06:25] LABS: ALBUMIN 3.2 GM/DL (3.2-5.2); ALBUMIN/GLOBULIN RATIO 1.19 (1.00-1.93); ALKALINE PHOSPHATASE 34 U/L (45-117); ALT/SGPT 27 U/L (12-78); ANION GAP 8 MEQ/L (8-16); AST/SGOT 14 U/L (15-37); BILIRUBIN,TOTAL 0.9 MG/DL (0.2-1.0); BLOOD UREA NITROGEN 20 MG/DL (7-18); CALCIUM LEVEL 8.3 MG/DL (8.5-10.1); CARBON DIOXIDE LEVEL 26 MEQ/L (21-32); CHLORIDE LEVEL 108 MEQ/L (98-107); CREATININE FOR GFR 1.19 MG/DL (0.70-1.30); GLOMERULAR FILTRATION RATE > 60.0 (>56); GLUCOSE, FASTING 102 MG/DL (70-105); MAGNESIUM LEVEL 2.3 MG/DL (1.8-2.4); SODIUM LEVEL 142 MEQ/L (136-145); TOTAL PROTEIN 5.9 GM/DL (6.4-8.2)
--- NOTE | 2016-04-02 06:47 | CR ---
DATE OF CONSULTATION: 04/01/2016 REFERRING PHYSICIAN: Dr. Aranda HISTORY OF PRESENT ILLNESS: The patient is a 56-year-old male who was admitted to the hospital yesterday. According to the patient he was in his heated garage at about 01:30 a.m. working on his snowplow. When he tried to get off his truck, he felt dizzy. He turned around and felt that he was falling down. He did not know anything till he landed on the ground. He hit his head and right side of his hip against the cement floor. He also bit his tongue but does not recall having incontinence of urine. He states that the loss of consciousness was very brief lasting for 5-10 seconds. This occurred during his fall onto the floor. When he came out of it, he did feel slightly tired. He later on developed a headache. Emergency medical pathologist (EMT) was called in and he was brought to the emergency room (ER) here at the [facility] where he did have CT scan of the brain performed which did not show any acute changes. His MRI of the cervical spine also did not show any fractures. He was subsequently admitted for further care. He says that he still has a headache which is mostly on the side of his head and occiput. This pain is achy in character. He does feel mildly dizzy as well. He however denies vertigo, diplopia, blurred vision, dysarthria and dysphagia. He says that he has had headaches since the age of 38 years. Lately he has been having them every day. This pain is bifrontal and both achy and at times throbbing in character. These headaches are associated with nausea, vomiting and photophobia. He does not complain of any dizzy spells, vertigo, diplopia, blurred vision, dysarthria or dysphagia with his headaches. He also denies history of visual auras. He says that in the past he has been taking Motrin which tends to decrease the intensity of this pain. He also has intermittent neck pain radiating into his shoulder muscles since his fall. He feels that his neck and shoulder muscles are stiff. There is no pain or weakness in his upper extremities. He denies numbness and tingling in his hands. He does complain of low back pain as well. This pain started after his fall yesterday. There is no complaint of any weakness or numbness and tingling in his lower extremities. He has known history of head trauma times six where he was diagnosed with headache and tension. He however denies having any syncopal episodes suggestive of seizure-like activity. He has been on vitamin D supplements and also albuterol as necessary. PAST MEDICAL HISTORY 1. Earlier emphysema. 2. Vitamin D deficiency. 3. Likely chronic migraine headaches. FAMILY HISTORY: The patient's mother is 82 years old and she is very healthy. His father has known history of emphysema and he also has had chronic headaches when he was younger. His son is also known to have chronic headaches. PERSONAL AND SOCIAL HISTORY: The patient lives with his family in [place]. There is history of smoking in the past which he quit about 17 years ago. He used to drink heavily in the past which he quit many years ago. REVIEW OF SYSTEMS All other systems were reviewed and found to be noncontributory. PHYSICAL EXAMINATION: GENERAL: On examination the patient does not appear in any discomfort. He is pleasant to interact with. His posture is normal. VITAL SIGNS : He is blood pressure is 130/84. Pulse is 72 per minute. Respirations are 20 per minute. His temperature is 98. He is 5 feet 10 inches tall. He weighs about 102 kg. NECK: His neck is supple. There is no carotid bruit audible. He does have moderate tenderness in his cervical spine and shoulder muscles. HEENT: His ear, nose and throat examination is normal. LUNGS: Lungs are clear to auscultation. HEART: His heart is regular rhythm. ABDOMEN: His abdomen is soft and nondistended. EXTREMITIES: There is no ankle edema seen. The peripheral pulses are normally palpable. NEUROLOGY EXAM: He is oriented to time and place. His speech is fluent. Extraocular movements are intact. There is no horizontal or vertical nystagmus seen. His pupils are about 3 mm in size and reactive to light. The consensual light reflex is present bilaterally. Visual lang are full to confrontational testing. His face is symmetrical. His tongue is midline. His motor examination does not show any focal motor weakness in his upper or lower extremities. There are no resting or postural tremors of the hands seen. His muscle tone is normal. The sensation to fine touch and pinprick is equal on both sides of the body. Deep tendon reflexes are 2+ and symmetrical with downgoing plantar reflexes. Romberg's testing is not performed. His gait is not tested. DIAGNOSTIC STUDIES: The patient's CBC shows a white cell count of 9700, hemoglobin 15.4, hematocrit 44.6 and platelets 182,000. His sodium is 141, potassium 4, BUN 20 and creatinine 1.23. His CPK on admission was 100. IMAGING: MRI of the brain is reported to be normal. His CT scan of the cervical spine does not show any evidence of fracture of the vertebrae. IMPRESSION: 1. Syncopal episode. 2. Increased headaches. 3. Likely post concussion syndrome. 4. History of chronic migraine headaches. 5. Rule out (R/O) seizure activity. PLAN: 1. Zonisamide 50 mg by mouth twice a day. 2. Tylenol as necessary for pain. 3. Electroencephalogram (EEG) as outpatient since the patient wants to go home. 4. MRA of the brain and carotid arteries as a contingency plan. 5. ESR, RACHNA, rheumatoid factor and lupus anticoagulant. 6. Continue with other care. Thank you very much for this consultation.
[2016-04-02 07:30] VITALS: BP 115/69
--- NOTE | 2016-04-02 09:38 | ECHO ---
DATE OF PROCEDURE: 04/01/2016 DATE OF : 1960 AGE: 56 REFERRING PROVIDER: Dr. Galen Aranda. PATIENT LOCATION: Room 3218. REASON FOR ECHOCARDIOGRAM: Syncope. 2D MEASUREMENTS: IVS: 1.0 cm LV: 5.0 cm LVPW: 1.0 cm LA: 3.9 cm Aorta: 3.6 cm DOPPLER MEASUREMENTS: Peak velocity across the aortic valve: 1.4 m/s Peak velocity across the LVOT: 1.3 m/s Mitral E: 0.87 Mitral A: 0.60 Ratio 1.4 2D COMMENTS: 1. Normal left ventricular size, wall thickness and normal global left ventricular systolic function. The left ventricle was hyperdynamic. The estimated global left ventricular systolic function is 70% to 75%. 2. Normal left atrium. The right atrium and the right ventricle appear to be minimally enlarged in limited views may be due to being off axis. 3. The atrial septum appeared to be normal without evidence of defect or shunt. 4. Normal aortic root. 5. No pericardial effusion seen. 6. Minimally calcified aortic valve with normal leaflet excursion. Normal mitral annulus and tricuspid valve. The pulmonic valve and proximal pulmonary artery branches were not well visualized. 7. The inferior vena cava appeared to be normal in limited views. DOPPLER: It detects trace aortic regurgitation, mild mitral regurgitation and trace to mild tricuspid regurgitation. Abnormal relaxation pattern was noted across the mitral annulus consistent with pseudonormal pattern. IMPRESSION: 1. Normal global left ventricular systolic function. There are features of left ventricular diastolic dysfunction, grade 2. 2. Aortic valve sclerosis with trace aortic regurgitation but no aortic stenosis. 3. Mild mitral regurgitation. 4. Trace to mild tricuspid regurgitation. Pulmonary artery systolic pressure may be borderline elevated. The right atrium appeared to be mildly enlarged in limited views.
[2016-04-02] MEDS ORDERED: ZONI50CA PO (09:55)
[2016-04-02] MEDS ORDERED: PERCOCET PO (09:55)
[2016-04-02] MEDS: ZONISAMIDE 50 MG CAP (ZONEGRAN) PO SCH (10:08)
[2016-04-02] MEDS: PERCOCET 5MG/325MG TAB PO PRN (10:10)
[2016-04-02 12:50] LABS: TOTAL PROTEIN 6.4 GM/DL (6.4-8.2)
[2016-04-02 14:01] LABS: ALBUMIN 4.17 GM/DL (3.29-5.55); ALBUMIN % 65.1 % (55.8-66.1); GAMMA GLOBULIN % 11.4 % (11.1-18.8)
--- NOTE | 2016-04-02 21:12 | EDDOCDS ---
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 Pt fall unwitnessed and he remembers waking up yelling for help. Pt reports pain in tailbone. EMS state patient was immobilized prior to EMS arrival. Unable to obtain IV in field. Pt reports previous injury to tail bone and feels could be re injury. Adult Sepsis Screening: The patient does not have new or worsening altered mentation. Patient's respiratory rate is less than 22. Systolic blood pressure is greater than 100. Patient has a qSOFA score of 0- Negative Sepsis Screen. Suicide/Homicide risk assessment- the patient denies having any suicidal and/or homicidal ideations and does not present with any other emotional, behavioral or mental health complaints. Status: Patient is not a library services assistant or dependent. Transition of care: patient was not received from another setting of care. 14:51 Acuity: XIMENA Level 3 hs1 14:51 Method Of Arrival: Ambulance hs1 Triage Assessment: 14:56 General: Appears in no apparent distress, Behavior is appropriate for age, cooperative. hs1 Pain: Location: scalp and buttocks Pain currently is 6 out of 10 on a pain scale. Pain: Quality of pain is described as "feels like a broke it again ". Neurological: Level of Consciousness is awake, alert, obeys commands, Oriented to person, place, time. Cardiovascular: No deficits noted. Respiratory: Airway is patent Respiratory effort is even, unlabored, Respiratory pattern is regular, symmetrical. GI: Reports nausea. Derm: Skin is pink, warm & dry. normal. 20:06 Pt Declines HIV testing. cf2 Historical: - Allergies: No known drug Allergies; - Home Meds: 1. Vitamin D Oral Unknown weekly - PMHx: vitamin D deficiancy; - PSHx: none; - Social history: Smoking status: Patient states former smoker of tobacco. No barriers to communication noted, The patient speaks fluent Greek, Speaks appropriately for age. - Family history: Not pertinent. - : The pt / caregiver states he / she is not on anticoagulants. Home medication list is obtained from the patient. - Exposure Risk Screening:: None identified. Screenin:07 Screening information is obtained from the patient. Fall risk: At risk due to gait cf2 disturbance, prior history of falls, dizziness. Assistance ADL's: Requires assistance with dressing, assistance is provided by ambulation, assistance is provided by. Abuse/DV Screen: The patient / caregiver reports he/she is: not in a situation that causes fear, pain or injury. Nutritional screening: No deficits noted. Advance Directives: Further advance directive information is declined. home support is adequate. Assessment: 15:08 General: Pt log rolled maintaining C spine precautions and back board removed. Pt hs1 states feeling much better not that he is off the board. Back board noted to have blood where patients back of head was. unknown injury to head at this time. . 15:42 General: Called to patient's bedside by Dr. Liriano. Per Dr. Liriano she was concerned that [facility] patient would have a seizure because patient went from normal skin color to being pale in color, remains alert and oriented x 3. In to assess patient, patient reported that he just didn't feel right. Patient noted to be shakey. Remained with patient and transported patient to C4 per [employer] Owner Dominga Cherry RN and Dr. Liriano. While in C4, IV line started in right antecubital and labs drawn, arrived and updated to current situation and relayed message through charge nurse Nany August RN to let Dr. Liriano whom was on phone with provider that would like an update. Seizure pads put in place.. 15:44 General: Appears uncomfortable, Behavior is appropriate for age. Pain: Location: head dsf Pain currently is 5 out of 10 on a pain scale. Quality of pain is described as aching. Neurological: Level of Consciousness is awake, alert, Reports dizziness, headache. Cardiovascular: Capillary refill < 3 seconds Rhythm is sinus rhythm No ectopy. Respiratory: Airway is patent Respiratory effort is even, unlabored, Respiratory pattern is regular, symmetrical. Derm: Skin is dry, Skin is pale, Skin temperature is cool. 16:44 General: Appears in no apparent distress, Behavior is appropriate for age. Pain: dsf Location: head Pain currently is 5 out of 10 on a pain scale. Neurological: Level of Consciousness is awake, alert, Reports gets very dizzy with movement . Cardiovascular: Capillary refill < 3 seconds Heart tones S1 S2 present. Respiratory: Airway is patent Respiratory effort is even, unlabored, Respiratory pattern is regular, symmetrical, Breath sounds are clear bilaterally. GI: Abdomen is non- distended Bowel sounds present X 4 quads. Abd is soft and non tender X 4 quads. Derm: Skin is dry, Skin is pale, Skin temperature is warm. 17:15 General: pt states up to date with tetanus . dsf 17:50 General: pt sitting up to take Tylenol po. pt c/o dizziness. dsf 18:00 Adult Sepsis Screening: The patient does not have new or worsening altered mentation. dsf Patient's respiratory rate is less than 22. Systolic blood pressure is greater than 100. Patient has a qSOFA score of 0- Negative Sepsis Screen. General: Appears in no apparent distress, Behavior is appropriate for age, cooperative. Pain: Location: head. Neurological: Level of Consciousness is awake, alert. Cardiovascular: No deficits noted. Respiratory: No deficits noted. Derm: Skin is dry, Skin is pale, Skin temperature is warm. 19:44 Reassessment: Patient appears in no apparent distress at this time. Patient denies pain cf2 at this time. Patient states feeling better. 19:48 General: Patient with complaint of increasing head pain especially with minimal cf2 movement. Patient medicated per admission orders. Patient states dinner tray "is just too much food". Patient offered and eating a turkey sandwich. Called PCU and gave report. . 20:03 General: Preparing patient for transport to floor. cf2 Vital Signs: 15:13 BP 134 / 80; Pulse 75; Resp 18; Temp 98.6(TE); Pulse Ox 96% on R/A; Weight 97.52 kg; dem1 Height 5 ft. 10 in. (177.80 cm); Pain 6/10; 19:50 BP 128 / 71; Pulse 70; Resp 16; Pulse Ox 100% on 2 lpm NC; Pain 8/10; cf2 20:03 BP 132 / 78; Pulse 72; Resp 16; Temp 98.0; Pulse Ox 99% on 2 lpm NC; Pain 4/10; cf2 20:05 BP 118 / 74 RA Supine (auto/lg); Pulse 88; Resp 16; Temp 97.6; Pulse Ox 92% on R/A; rs6 15:13 Body Mass Index 30.85 (97.52 kg, 177.80 cm) dem1 20:05 pt states that he is not in pain for 0-10 scale "just doesn't feel good and am really rs6 dizzy" Vitals: 15:13 Log In Time N/A - ambulance arrival. [facility] ED Course: 14:46 Patient visited by Precious Melendez, Manager Assisted Living. lbd 14:46 Patient moved to Waiting lbd 14:47 Patient moved to 21 lbd 14:53 Triage Initiated hs1 15:13 Pt greeted and oriented to ED. Patient advised of names of staff involved in care, [place] [facility] location of call crump, wait times and NPO status. Patient has correct armband on for positive identification. Placed in gown. Bed in low position. Call light in reach. Side rails up X2. garage door service technician on. Pulse ox on. NIBP on. 15:14 Patient visited by Michelle Thompson. dem1 15:17 Larisa Amezquita MD is Attending Physician. ml 15:17 Patient visited by Larisa Amezquita MD. ml 15:31 Patient moved to 4 ml 15:41 EKG done. (by ED staff). Reviewed by Larisa Amezquita MD. ct3 15:42 Patient visited by Bridget Vázquez PCA. ct3 15:42 Inserted saline lock: 20 gauge in left antecubital area and blood collected. Labs jmb drawn. (by ED staff). Sent per order to lab. 15:43 Troponin Sent. dsf 15:43 CIP Sent. dsf 15:43 Type & Screen Sent. dsf 15:44 PTT Sent. dsf 15:44 PT/INR Sent. dsf 15:44 MED Profile Sent. dsf 15:44 CBC with Diff Sent. dsf 15:45 Patient visited by Jes Zamora,AAKASH. dsf 15:[address] dsf 16:09 Patient moved to 4 ek2 16:37 CT Head Without Contrast Returned. EDMS 17:15 Patient visited by Jes Zamora RN. dsf 17:19 Julio Ardon DO is Hospitalizing Provider. ml 17:50 Patient visited by Jes Zamora RN. dsf 18:24 Patient moved to MRI dsf 18:42 Patient visited by Bridget Vázquez, ACOUSTICAL LOGGING ENGINEER. ct3 18:42 Diet: Patient given regular meal. ct3 18:52 Patient visited by Jes Zamora RN. dsf 18:59 CT ABD & PELVIS: IV Contrast Only Returned. EDMS 19:01 Kathryn Mascorro,AAKASH is Primary Nurse. cf2 19:01 Patient visited by Kathryn Mascorro RN. cf2 19:35 [facility] Payment Agreement was scanned into [employer] and attached to record. gjb 19:50 Chest, 1 View Returned. EDMS 20:01 Patient visited by Kathryn Mascorro RN. cf2 20:07 Patient visited by Melissa Wilson, KENNEY. rs6 20:07 The patient / caregiver is instructed regarding the plan of care and ED course. Report cf2 given to B[employer]. Property :Personal belongings accompany Pt. Door closed. Noise minimized. Visitors limited. Lights dimmed. Moved to private room. Diet tray given. Diet tray ordered. PO fluids given. Verbal reassurance given. Warm blanket given. Pillow given. Head of bed elevated. Diet: Patient given snack. Tolerated well. 20:07 No procedures done that require assistance. cf2 01/04 09:24 T-Sheet-- Draft Copy was scanned into [employer] and attached to record. gb 09:24 Radiology Report was scanned into [employer] and attached to record. gb 09:25 PCR was scanned into [employer] and attached to record. gb Administered Medications: 03/31 15:43 Drug: NS 0.9% 1000 ml [sodium chloride 0.9 % injection solution] Route: IV; Rate: 80 dsf mL/hr; Site: left antecubital; 15:43 Drug: Ondansetron 4 mg [ondansetron HCl 2 mg/mL intravenous solution (2 mL)] Route: dsf IVP; Site: left antecubital; 17:50 Drug: Acetaminophen 650 mg [acetaminophen 325 mg tablet (2 tabs)] Route: PO; dsf 19:46 Drug: oxyCODONE-acetaminophen 2 tabs [oxycodone-acetaminophen 5 mg-325 mg tablet (2 cf2 tabs)] Route: PO; 19:46 Follow up: Response: Pain is decreased cf2 Order Results: Lab Order: CBC with Diff; SPEC'M 03/31/16 15:39 Test: WHITE BLOOD COUNT; Value: 8.9; Range: 4.0-10.0; Units: K/mm3; Status: F Test: RED BLOOD COUNT; Value: 5.33; Range: 4.30-6.10; Units: M/mm3; Status: F Test: HEMOGLOBIN; Value: 15.7; Range: 14.0-18.0; Units: g/dl; Status: F Test: HEMATOCRIT; Value: 45.2; Range: 42.0-52.0; Units: %; Status: F Test: MEAN CORPUSCULAR VOLUME; Value: 84.8; Range: 80.0-96.0; Units: fl; Status: F Test: MEAN CORPUSCULAR HEMOGLOBIN; Value: 29.6; Range: 27.0-33.0; Units: pg; Status: F Test: MEAN CORPUSCULAR HGB CONC; Value: 34.9; Range: 32.0-36.5; Units: g/dl; Status: F Test: RED CELL DISTRIBUTION WIDTH; Value: 12.3; Range: 11.5-14.5; Units: %; Status: F Test: PLATELET COUNT, AUTOMATED; Value: 192; Range: 150-450; Units: k/mm3; Status: F Test: NEUTROPHILS %; Value: 76.5; Range: 36.0-66.0; Abnormal: Above high normal; Units: %; Status: F Test: LYMPH %; Value: 14.7; Range: 24.0-44.0; Abnormal: Below low normal; Units: %; Status: F Test: MONO %; Value: 5.5; Range: 0.0-5.0; Abnormal: Above high normal; Units: %; Status: F Test: EOS %; Value: 1.7; Range: 0.0-3.0; Units: %; Status: F Test: BASO %; Value: 0.7; Range: 0.0-1.0; Units: %; Status: F Test: LARGE UNSTAINED CELL %; Value: 0.9; Range: 0.0-4.0; Units: %; Status: F Test: NEUTROPHILS #; Value: 6.8; Range: 1.8-7.7; Units: K/mm3; Status: F Test: LYMPH #; Value: 1.3; Range: 1.5-4.5; Abnormal: Below low normal; Units: K/mm3; Status: F Test: MONO #; Value: 0.5; Range: 0.0-0.8; Units: K/mm3; Status: F Test: EOS #; Value: 0.2; Range: 0.0-0.50; Units: K/mm3; Status: F Test: BASO #; Value: 0.1; Range: 0.0-0.2; Units: K/mm3; Status: F Test: LARGE UNSTAINED CELL #; Value: 0.1; Range: 0.0-0.4; Units: K/mm3; Status: F Lab Order: MED Profile; [facility] 03/31/16 15:39 Test: GLUCOSE, FASTING; Value: 130; Range: 70-105; Abnormal: Above high normal; Units: MG/DL; Status: F Test: BLOOD UREA NITROGEN; Value: 20; Range: 7-18; Abnormal: Above high normal; Units: MG/DL; Status: F Test: CREATININE FOR GFR; Value: 1.23; Range: 0.70-1.30; Units: MG/DL; Status: F Test: GLOMERULAR FILTRATION RATE; Value: > 60.0; Range: >56; Status: F Test: SODIUM LEVEL; Value: 141; Range: 136-145; Units: MEQ/L; Status: F Test: POTASSIUM SERUM; Value: 4.0; Range: 3.5-5.1; Units: MEQ/L; Status: F Test: CHLORIDE LEVEL; Value: 105; Range: 98-107; Units: MEQ/L; Status: F Test: CARBON DIOXIDE LEVEL; Value: 27; Range: 21-32; Units: MEQ/L; Status: F Test: ANION GAP; Value: 9; Range: 8-16; Units: MEQ/L; Status: F Test: CALCIUM LEVEL; Value: 8.2; Range: 8.5-10.1; Abnormal: Below low normal; Units: MG/DL; Status: F Test Note: ; Units are mL/min/1.73 m2 Chronic Kidney Disease Staging per NKF: Stage I & II GFR >=60 Normal to Mildly Decreased Stage III GFR 30-59 Moderately Decreased Stage IV GFR 15-29 Severely Decreased Stage V GFR <15 Very Little GFR Left ESRD GFR <15 on CAP MACHINE OPERATOR Lab Order: PT/INR; [facility] 03/31/16 15:39 Test: PROTHROMBIN TIME; Value: 13.6; Range: 12.3-14.5; Units: SECONDS; Status: F Test: INR; Value: 1.03; Status: F Test Note: ; THERAPUTIC HUMAN INR VALUES INDICATIONS NORMAL RANGES PROPHYLAXIS/TREATMENT OF: VENOUS THROMBOSIS 2.0-3.0 PULMONARY EMBOLISM 2.0-3.0 PREVENTION OF SYSTEMIC EMBOLISM FROM: TISSUE HEART VALVES 2.0-3.0 ACUTE MYOCARDIAL INFARCTION 2.0-3.0 VALVULAR HEART DISEASE 2.0-3.0 ATRIAL FIBRILLATION 2.0-3.0 MECHANICAL VALVES(HIGH RISK) 2.5-3.5 RECURRENT MYOCARDIAL INFARCTION 2.5-3.5 Lab Order: PTT; [facility] 03/31/16 15:39 Test: PARTIAL THROMBOPLASTIN TIME; Value: 27.2; Range: 26.6-37.1; Units: SECONDS; Status: F Lab Order: Type & Screen; [facility] 03/31/16 15:39 Test: BLOOD TYPE; Value: O NEG; Status: F Test: AB SCREEN (INDIRECT ADONAY)GEL; Value: NEGATIVE; Status: F Lab Order: CIP; [facility] 03/31/16 15:39 Test: CPK CREATINE PHOSPHOKINASE; Value: 169; Range: 39-308; Units: U/L; Status: F Test: CK-MB VALUE MASS; Value: 3.4; Range: 0.0-3.6; Units: NG/ML; Status: F Test: MB/CK RELATIVE INDEX; Value: 2.01; Range: < OR =4; Status: F Test Note: ; DIAGNOSIS CRITERIA MMB ng/ml Relative Index (RI) NON-AMI < or = 5 N/A LIRIANO ZONE > 5 < or = 4 AMI > 5 > 4 Lab Order: Troponin; [facility] 03/31/16 15:39 Test: TROPONIN I; Value: < 0.02; Range: < 0.10; Units: NG/ML; Status: F Test Note: ; Troponin I Reference Interval for [employer] [place] LOCI: 99th Percentile= 0.00-0.045 ng/ml Risk Stratification: <= 0.10 ng/ml Decreased Risk for Adverse Clinical Events. 0.10-1.50 ng/ml Increased Risk for Adverse Clinical Events. Evaluation of additional criterion and/or repeat testing in 2-6 hours is suggested to rule out myocardial damage. >= 1.50 ng/ml Indicative of Myocardial Injury. Lab Order: LIVER PROFILE; SPEC'M 03/31/16 15:39 Test: AST/SGOT; Value: 26; Range: 15-37; Units: U/L; Status: F Test: ALT/SGPT; Value: 35; Range: 12-78; Units: U/L; Status: F Test: ALKALINE PHOSPHATASE; Value: 47; Range: 45-117; Units: U/L; Status: F Test: BILIRUBIN,TOTAL; Value: 0.7; Range: 0.2-1.0; Units: MG/DL; Status: F Test: BILIRUBIN,DIRECT; Value: 0.1; Range: 0.0-0.2; Units: MG/DL; Status: F Test: TOTAL PROTEIN; Value: 6.7; Range: 6.4-8.2; Units: GM/DL; Status: F Test: ALBUMIN; Value: 3.9; Range: 3.2-5.2; Units: GM/DL; Status: F Test: ALBUMIN/GLOBULIN RATIO; Value: 1.39; Range: 1.00-1.93; Status: F Radiology Order: CT Head Without Contrast Test: CT Head Without Contrast REASON FOR EXAMINATION: fall, hit head; CT Head without contrast; ; HISTORY: Trauma; ; COMPARISON: None; ; There is no intraparenchymal hemorrhage, acute infarct, mass or midline shift.; The ventricular system is normal in appearance. There is no extra cerebral; collection. There is no fracture. The visualized sinuses are clear.; ; IMPRESSION: There is no intracranial lesion.; ; ; ; ; Signed by; Francois Lund MD 03/31/2016 04:16 P; Radiology Order: Chest, 1 View Test: Chest, 1 View REASON FOR EXAMINATION: fall; SINGLE VIEW CHEST:; ; COMPARISON: 05/09/2011; ; There is no evidence of acute infiltrate.; No pleural effusion is seen.; The heart is normal in size.; The mediastinal silhouette is unremarkable.; The visualized osseous structures are intact.; ; IMPRESSION:; No acute pulmonary disease.; ; Unreviewed; Radiology Order: CT ABD & PELVIS: IV Contrast Only Test: CT ABD & PELVIS: IV Contrast Only REASON FOR EXAMINATION: fall, back pain; CT abdomen pelvis performed with IV contrast 03/31/2016; ; Indication: Fall, back pain; ; Comparison: None; ; Findings: Small amount of bibasilar atelectasis and/or scarring is noted.; ; 9 mm hyperdense focus within the right dome of liver suggests small area of focal; fatty sparing, possibly atypical hemangioma. Spleen, pancreas are unremarkable.; Gallbladder is contracted without visualized stones or biliary dilatation.; Adrenal glands are normal. Kidneys are without hydronephrosis or obstructing; ureteral calculi bilaterally. There are no intrarenal masses or cysts. Stomach; is moderately distended with ingested material and air. Small bowel is without; obstruction. The terminal ileum and the appendix are normal. Abdominal aorta is; of normal course and caliber there are no pathologically enlarged retroperitoneal; nodes; ; Bladder prostate is normal. There is moderate retained stool within the colon; and scattered colonic diverticuli. There is no free air or ascites.; ; The lower thoracic spine to include T9-T12, as well as lumbosacral spine and; coccyx are without acute fracture or displacement.; ; There is no pelvic fracture, or pelvic diastases the hips are without fracture or; dislocation.; ; Impression:; ; No acute intra-abdominal or pelvic pathology; ; Abdominal aorta without aneurysm, dissection, or adjacent retroperitoneal; hematoma. Moderate gastric distension. Moderate retained colonic stool.; ; No evidence of lower thoracic lumbosacral spine fracture. Pelvis without; fracture, pelvic diastasis or dislocation.; ; 10 mm hyperdense focus within the right dome of liver. Differential diagnosis; includes small atypical cavernous hemangioma, hepatic adenoma. Recommend follow; up gallbladder ultrasound; ; ; ; ; Signed by; Barbara Long MD 03/31/2016 06:15 P; Outcome: 17:20 Decision to Hospitalize by Provider. ml 20:05 Discharge Assessment: Patient awake, alert and oriented x 3. No cognitive and/or cf2 functional deficits noted. Patient verbalized understanding of disposition instructions. Patient awake and alert. Oriented to person, place and time. Patient verbalized understanding of disposition instructions. Patient unable to independently bathe himself/herself, unable to independently dress himself/herself, unable to independently attend to toileting needs, unable to independently transfer in/out of bed and/or chair, patient administered narcotics - yes. The following High Risk Discharge criteria are identified: Yes, Admitted to PCU accompanied by nurse, accompanied by tech, family with patient, via stretcher, with oxygen, on monitor, with chart. Condition: stable. CT Study completed. MRI Study completed. Property :Personal belongings accompany Pt. and with . 20:11 Patient left the ED. eduardo Signatures: Dispatcher [employer] EDMS Larisa Amezquita MD MD ml Precious Melendez, Manager Assisted Living Unit lbd Mariam Chavez RN RN jan Barnhardt, Gloria, Reg Reg Nicole North RN RN hs1 Bridget Vázquez, ACOUSTICAL LOGGING ENGINEER ACOUSTICAL LOGGING ENGINEER ct3 Jes Zamora,RN RN cyf Michelle Thompson dem1 Simon CarranzaRN RN Hakan Fernandez ek2 Wilson, Melissa, ACOUSTICAL LOGGING ENGINEER ACOUSTICAL LOGGING ENGINEER rs6 Talisha Lopez Christina,RN RN cf2 Corrections: (The following items were deleted from the chart) 15:46 15:42 General: Called to patient's bedside by Dr. Liriano. Per Dr. Liriano she was concerned johny that patient would have a seizure because patient went from normal skin color to being pale in color, remains alert and oriented x 3. In to assess patient, patient reported that he just didn't feel right. Patient noted to be shakey. Remained with patient and transported patient to C4 per [employer] Owner Dominga Cherry RN and Dr. Liriano. While in C4, IV line started in right antecubital and labs drawn, arrived and updated to current situation and relayed message through charge nurse Nany August RN to let Dr. Liriano whom was on phone with provider that would like an update. . [facility] 15:50 15:43 LIVER PROFILE+LAB sent. dsf EDMS Chart Complete MTDD
--- NOTE | 2016-04-02 21:12 | EDDOCDS ---
Physician Documentation [facility] Name: Vj Andino Age: 56 yrs Sex: Male : 1960 Arrival Date: 03/31/2016 Time: 14:45 Bed MRI Private MD: Disposition: 03/31/16 17:20 Hospitalization ordered by Julio Ardon for Inpatient Admission. Preliminary diagnosis are Syncope and collapse, Fall (on) (from) unspecified stairs and steps, Concussion with loss of consciousness of unspecified duration, Low back pain. - Bed requested for PCU. - Status is Inpatient Admission. mar - Condition is Stable. - Problem is new. - Symptoms are unchanged. Historical: - Allergies: No known drug Allergies; - Home Meds: 1. Vitamin D Oral Unknown weekly - PMHx: vitamin D deficiancy; - PSHx: none; - Social history: Smoking status: Patient states former smoker of tobacco. No barriers to communication noted, The patient speaks fluent Japanese, Speaks appropriately for age. - Family history: Not pertinent. - : The pt / caregiver states he / she is not on anticoagulants. Home medication list is obtained from the patient. - Exposure Risk Screening:: None identified. Vital Signs: 03/31 15:13 BP 134 / 80; Pulse 75; Resp 18; Temp 98.6(TE); Pulse Ox 96% on R/A; Weight 97.52 kg / dem1 214.99 lbs; Height 5 ft. 10 in. (177.80 cm); Pain 6/10; 19:50 BP 128 / 71; Pulse 70; Resp 16; Pulse Ox 100% on 2 lpm NC; Pain 8/10; cf2 20:03 BP 132 / 78; Pulse 72; Resp 16; Temp 98.0; Pulse Ox 99% on 2 lpm NC; Pain 4/10; cf2 20:05 BP 118 / 74 RA Supine (auto/lg); Pulse 88; Resp 16; Temp 97.6; Pulse Ox 92% on R/A; rs6 15:13 Body Mass Index 30.85 (97.52 kg, 177.80 cm) dem1 20:05 pt states that he is not in pain for 0-10 scale "just doesn't feel good and am really rs6 dizzy" MDM: 15:27 IV Saline Lock ordered. ml 15:27 Seizure Precautions ordered. ml 15:28 CT Head Without Contrast Ordered. EDMS 15:28 CT Spine,Cervical W/o Contrast Ordered. EDMS 15:28 CBC with Diff Ordered. EDMS 15:28 MED Profile Ordered. EDMS 15:28 PT/INR Ordered. EDMS 15:28 PTT Ordered. EDMS 15:28 CIP Ordered. EDMS 15:28 Troponin Ordered. EDMS 15:28 Undress patient ordered. ml 15:28 Misc. Nursing Order ordered. ml 15:28 Chest, 1 View Ordered. EDMS 15:29 Type & Screen Ordered. EDMS 15:29 ECG WITH READING ER PHYS+CARDIAG ordered. EDMS 15:29 NS 0.9% 1000 ml IV at 80 mL/hr continuous ordered. ml 15:29 Ondansetron 4 mg IVP once ordered. ml 15:30 CT Maxilofacial W/out Contrast Ordered. EDMS 15:48 CT ABD & PELVIS: IV Contrast Only Ordered. EDMS 15:52 LIVER PROFILE Ordered. EDMS 16:29 CBC with Diff Reviewed. ml 16:29 MED Profile Reviewed. ml 16:29 PT/INR Reviewed. ml 16:29 PTT Reviewed. ml 16:29 CIP Reviewed. ml 16:29 Troponin Reviewed. ml 16:29 LIVER PROFILE Reviewed. ml 16:47 Type & Screen Reviewed. ml 16:47 CT Head Without Contrast Reviewed. ml 17:17 Acetaminophen Tablet 650 mg PO once ordered. ml 17:50 Admission / Observation Status ordered. EDMS 17:50 REGULAR DIET ordered. EDMS 18:09 MRI Brain without Contrast Ordered. EDMS 19:31 COMPLETE BLOOD COUNT Ordered. EDMS 19:31 COMPLETE COMPHRENSIVE METABOLI Ordered. EDMS 19:31 MAGNESIUM LEVEL Ordered. EDMS 19:32 Financial registration complete. gjb 19:35 [facility] Payment Agreement was scanned into Cipio and attached to record. gjb 19:46 oxyCODONE-acetaminophen 5 mg-325 mg 2 tabs PO once ordered. cf2 04/01 09:24 T-Sheet-- Draft Copy was scanned into Cipio and attached to record. gb 09:24 Radiology Report was scanned into Cipio and attached to record. gb 09:25 PCR was scanned into Cipio and attached to record. gb Administered Medications: 03/31 15:43 Drug: NS 0.9% 1000 ml [sodium chloride 0.9 % injection solution] Route: IV; Rate: 80 dsf mL/hr; Site: left antecubital; 15:43 Drug: Ondansetron 4 mg [ondansetron HCl 2 mg/mL intravenous solution (2 mL)] Route: dsf IVP; Site: left antecubital; 17:50 Drug: Acetaminophen 650 mg [acetaminophen 325 mg tablet (2 tabs)] Route: PO; dsf 19:46 Drug: oxyCODONE-acetaminophen 2 tabs [oxycodone-acetaminophen 5 mg-325 mg tablet (2 cf2 tabs)] Route: PO; 19:46 Follow up: Response: Pain is decreased cf2 Signatures: Dispatcher [employer] EDMS Larisa Amezquita MD MD ml Mariam Chavez, RN RN Chayito Hamm, Benjy Reg gb Ekta Centeno, Heavy Machinery [employer] ml3 Nicole North RN RN hs1 Talisha Lopez Christina, RN RN cf2 Jes Zamora RN dsf The chart was reviewed and I authenticate all verbal orders and agree with the evaluation and treatment provided.Corrections: (The following items were deleted from the chart) 15:50 15:29 LIVER PROFILE+LAB ordered. EDMS EDMS 17:24 15:30 Pelvis+XR ordered. EDMS EDMS Attachments: 19:35 [facility] Payment Agreement gjb 04/01 09:24 T-Sheet-- Draft Copy gb Chart Complete MTDD
--- NOTE | 2016-04-02 21:12 | EDDOCDS ---
Physician Documentation [facility] Name: Vj Andino Age: 56 yrs Sex: Male : 1960 Arrival Date: 03/31/2016 Time: 14:45 Bed MRI Private MD: Disposition: 03/31/16 17:20 Hospitalization ordered by Julio Ardon for Inpatient Admission. Preliminary diagnosis are Syncope and collapse, Fall (on) (from) unspecified stairs and steps, Concussion with loss of consciousness of unspecified duration, Low back pain. - Bed requested for PCU. - Status is Inpatient Admission. mar - Condition is Stable. - Problem is new. - Symptoms are unchanged. Historical: - Allergies: No known drug Allergies; - Home Meds: 1. Vitamin D Oral Unknown weekly - PMHx: vitamin D deficiancy; - PSHx: none; - Social history: Smoking status: Patient states former smoker of tobacco. No barriers to communication noted, The patient speaks fluent Romansh, Speaks appropriately for age. - Family history: Not pertinent. - : The pt / caregiver states he / she is not on anticoagulants. Home medication list is obtained from the patient. - Exposure Risk Screening:: None identified. Vital Signs: 03/31 15:13 BP 134 / 80; Pulse 75; Resp 18; Temp 98.6(TE); Pulse Ox 96% on R/A; Weight 97.52 kg / dem1 214.99 lbs; Height 5 ft. 10 in. (177.80 cm); Pain 6/10; 19:50 BP 128 / 71; Pulse 70; Resp 16; Pulse Ox 100% on 2 lpm NC; Pain 8/10; cf2 20:03 BP 132 / 78; Pulse 72; Resp 16; Temp 98.0; Pulse Ox 99% on 2 lpm NC; Pain 4/10; cf2 20:05 BP 118 / 74 RA Supine (auto/lg); Pulse 88; Resp 16; Temp 97.6; Pulse Ox 92% on R/A; rs6 15:13 Body Mass Index 30.85 (97.52 kg, 177.80 cm) dem1 20:05 pt states that he is not in pain for 0-10 scale "just doesn't feel good and am really rs6 dizzy" MDM: 15:27 IV Saline Lock ordered. ml 15:27 Seizure Precautions ordered. ml 15:28 CT Head Without Contrast Ordered. EDMS 15:28 CT Spine,Cervical W/o Contrast Ordered. EDMS 15:28 CBC with Diff Ordered. EDMS 15:28 MED Profile Ordered. EDMS 15:28 PT/INR Ordered. EDMS 15:28 PTT Ordered. EDMS 15:28 CIP Ordered. EDMS 15:28 Troponin Ordered. EDMS 15:28 Undress patient ordered. ml 15:28 Misc. Nursing Order ordered. ml 15:28 Chest, 1 View Ordered. EDMS 15:29 Type & Screen Ordered. EDMS 15:29 ECG WITH READING ER PHYS+CARDIAG ordered. EDMS 15:29 NS 0.9% 1000 ml IV at 80 mL/hr continuous ordered. ml 15:29 Ondansetron 4 mg IVP once ordered. ml 15:30 CT Maxilofacial W/out Contrast Ordered. EDMS 15:48 CT ABD & PELVIS: IV Contrast Only Ordered. EDMS 15:52 LIVER PROFILE Ordered. EDMS 16:29 CBC with Diff Reviewed. ml 16:29 MED Profile Reviewed. ml 16:29 PT/INR Reviewed. ml 16:29 PTT Reviewed. ml 16:29 CIP Reviewed. ml 16:29 Troponin Reviewed. ml 16:29 LIVER PROFILE Reviewed. ml 16:47 Type & Screen Reviewed. ml 16:47 CT Head Without Contrast Reviewed. ml 17:17 Acetaminophen Tablet 650 mg PO once ordered. ml 17:50 Admission / Observation Status ordered. EDMS 17:50 REGULAR DIET ordered. EDMS 18:09 MRI Brain without Contrast Ordered. EDMS 19:31 COMPLETE BLOOD COUNT Ordered. EDMS 19:31 COMPLETE COMPHRENSIVE METABOLI Ordered. EDMS 19:31 MAGNESIUM LEVEL Ordered. EDMS 19:32 Financial registration complete. gjb 19:35 [facility] Payment Agreement was scanned into [employer] and attached to record. gjb 19:46 oxyCODONE-acetaminophen 5 mg-325 mg 2 tabs PO once ordered. cf2 04/01 09:24 T-Sheet-- Draft Copy was scanned into Video[employer] and attached to record. gb 09:24 Radiology Report was scanned into Video[employer] and attached to record. gb 09:25 PCR was scanned into [employer] and attached to record. gb Administered Medications: 03/31 15:43 Drug: NS 0.9% 1000 ml [sodium chloride 0.9 % injection solution] Route: IV; Rate: 80 dsf mL/hr; Site: left antecubital; 15:43 Drug: Ondansetron 4 mg [ondansetron HCl 2 mg/mL intravenous solution (2 mL)] Route: dsf IVP; Site: left antecubital; 17:50 Drug: Acetaminophen 650 mg [acetaminophen 325 mg tablet (2 tabs)] Route: PO; dsf 19:46 Drug: oxyCODONE-acetaminophen 2 tabs [oxycodone-acetaminophen 5 mg-325 mg tablet (2 cf2 tabs)] Route: PO; 19:46 Follow up: Response: Pain is decreased cf2 Signatures: Dispatcher [employer] EDMS Larisa Amezquita MD MD ml Mariam Chavez, RN RN Chayito Hamm, Benjy Reg gb Ekta Centeno, Measuring Machine Tender Unit ml3 Nicole North RN RN hs1 Talisha Lopez Christina, RN RN cf2 Jes Zamora RN dsf The chart was reviewed and I authenticate all verbal orders and agree with the evaluation and treatment provided.Corrections: (The following items were deleted from the chart) 15:50 15:29 LIVER PROFILE+LAB ordered. EDMS EDMS 17:24 15:30 Pelvis+XR ordered. EDMS EDMS Attachments: 19:35 [facility] Payment Agreement gjb 04/01 09:24 T-Sheet-- Draft Copy gb Chart Complete MTDD
--- NOTE | 2016-04-03 04:32 | DSES ---
DATE OF ADMISSION: 03/31/2016 DATE OF DISCHARGE: 04/02/2016 Specialists involved in care include Dr. Flores. No complications during stay. DISCHARGE DIAGNOSIS: Concussion. SECONDARY DIAGNOSES: 1. Possible syncope. 2. Headaches. 3. Postconcussion syndrome. 4. History of migraine. 5. Suspected emphysema. 6. Vitamin D deficiency. 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 He did suffer a closed head injury and a probable concussion. Events surrounding the fall were somewhat cryptic. He may have slightly lost consciousness. There was no aura or seizure or seizure-like activity. He improved markedly. He was monitored on telemetry. He did have brain MRI, which showed no acute lesion. He was seen by Dr. Flores. On the day of discharge, he is feeling well. He had an electroencephalogram (EEG), results of which are pending. Temperature 95.7, pulse 32, respiratory rate 22, blood pressure 115/69, 98% on room air. Awake, alert. Breathing is symmetrical and rested. Heart is in a regular rate and rhythm. Abdomen soft, doughy, nontender. White cell count 7, creatinine 1.19. DISCHARGE INSTRUCTIONS: Include the following: Followup [facility] 04/20, Dr. Flores 04/20. No physical activity more strenuous than slow walking for 1 week. He is excused from work for 1 week. He can return to light duty at that time. - Percocet one tablet every 4 hours as needed for pain, number 20 - zonisamide 50 mg by mouth twice daily for headache - albuterol two puffs inhaled every 4 hours as needed for shortness of breath - Motrin as needed for pain - vitamin D 50,000 units weekly
--- NOTE | 2016-04-07 07:33 | EEG ---
DATE OF PROCEDURE: 04/02/2016 REFERRING PHYSICIAN: Emergency room. DIAGNOSIS: Loss of consciousness. EEG #: [id number]. HISTORY: Patient is a 56-year-old man who was seen at [facility] due to dizziness, falling down and losing consciousness for 10 seconds. This EEG was done to rule out epileptic potential. Current list of his medicine was not provided. TECHNICAL DESCRIPTION: This digital EEG was recorded by 21 scalp, ear and two EKG electrodes and was reviewed in bipolar and referential montages following reformatting in 10-20 international electrode placement system. INTERPRETATION: The patient was noted to be in awake and drowsy states during this EEG. Resting awake background consisted of 9 Hz alpha activity measuring 15-40 microvolts in amplitude which was symmetric and reactive to eye opening. Attenuation of posterior dominant rhythm was seen during transition into drowsiness. Stage I and II sleep were reviewed and were symmetric bilaterally. Hyperventilation elicited mild theta slowing of background rhythm. Photic stimulation at 3-30 Hz elicited symmetric photic driving. EKG revealed normal sinus rhythm. No focal, lateralizing or epileptiform abnormalities were seen. No clinical or electrographic seizures were recorded. CONCLUSION: This EEG in awake, drowsy states, stage I and II sleep is within normal limits.
== END 2016-04-02 12:56 | disposition home or self-care (01) | DRG 57 ==
LOC: M ED 14:45 → M ED INP 17:47 → M PCU 20:15
PROVIDERS: ADMIT Internal Medicine; ATTEND Internal Medicine
DX: S06.0X9A Concussion with loss of consciousness of unspecified duration, initial encounter (principal); J43.9 Emphysema, unspecified; E55.9 Vitamin D deficiency, unspecified; V68.4XXA Person boarding or alighting a heavy transport vehicle injured in noncollision transport accident, initial encounter; Y99.0 Civilian activity done for income or pay; Y92.89 Other specified places as the place of occurrence of the external cause; W22.09XA Striking against other stationary object, initial encounter; Z87.891 Personal history of nicotine dependence; Z79.899 Other long term (current) drug therapy; G43.709 Chronic migraine without aura, not intractable, without status migrainosus

== ENCOUNTER 2023-05-31 08:46 | Day surgery (SDC) | payer BC ==
[~2023-05-31] VITALS: Ht 177.8 cm; Wt 98.2 kg
[~2023-05-31 08:46] MED LIST: ALBU17IN INH; DRIS50003 PO; ERGO500029 PO; ESOM1CAP5 PO; IBUPOTC PO; PERCOCET PO; ZONI50CA11 PO
[2023-05-31] MEDS: NS 1,000 ML IV ONE (09:10)
[2023-05-31] MEDS ORDERED: fentaNYL 100 MCG/2 ML INJECTION As Ordered ONE (11:11)
[2023-05-31] MEDS ORDERED: LIDOCAINE 2% 100MG/5ML SDV (FOR ANES.) As Ordered ONE (11:28)
[2023-05-31] MEDS ORDERED: propofoL 200 MG/20 ML VIAL As Ordered ONE (11:28)
[2023-05-31 11:44] VITALS: TEMP 97.2
[2023-05-31 12:12] VITALS: BP 120/57; O2SAT 95
== END 2023-05-31 18:22 | disposition home or self-care (01) ==
LOC: M OPP 08:46
PROVIDERS: ATTEND Internal Medicine Gastroenterology
DX: Z12.11 Encounter for screening for malignant neoplasm of colon (principal); Z12.12 Encounter for screening for malignant neoplasm of rectum; K63.5 Polyp of colon; K57.30 Diverticulosis of large intestine without perforation or abscess without bleeding; K29.50 Unspecified chronic gastritis without bleeding; K64.0 First degree hemorrhoids; R10.13 Epigastric pain
CPT/HCPCS: 43239; 45385; 88305; J3010

== ENCOUNTER 2024-06-15 06:14 | Observation (INO) | payer BC ==
[~2024-06-15] VITALS: Ht 177.8 cm; Wt 93.2 kg
[~2024-06-15 06:14] MED LIST changes: +ESOM1CAP20 PO; -ESOM1CAP5 PO
[2024-06-15 07:18] LABS: KETONE, URINE MANUAL REFLEX NEGATIVE (NEGATIVE); NITRITE, URINE MANUAL RFX NEGATIVE (NEGATIVE); PROTEIN, URINE MANUAL REFLEX 3+ mg/dL (NEGATIVE); SP GRAVITY,URINE MANUAL REFLEX 1.015 (1.002-1.035); UROBILINOGEN, UA MANUAL REFLEX NORMAL (NORMAL)
[2024-06-15 07:21] LABS: HYALINE CAST, URINE RFX NONE SEEN /lpf (0-1); RBC, URINE MAN REFLEX TNTC /hpf (0-3); SQUAMOUS EPITHELIAL URINE RFX NONE SEEN /hpf (SMALL AMT); WBC, URINE MAN RFX 0-1 /hpf (0-3)
[2024-06-15 07:22] LABS: MICROSCOPIC EXAM RFX PERFORMED
[2024-06-15 07:58] LABS: BASO # 0.1 10^3/uL (0.0-0.2); BASO % 0.8 % (0.0-1.0); EOS # 0.1 10^3/uL (0.0-0.5); EOS % 1.7 % (0.0-3.0); HEMATOCRIT 47.1 % (42.0-52.0); HEMOGLOBIN 16.7 g/dl (13.5-17.5); LYMPH # 1.2 10^3/uL (1.5-5.0); LYMPH % 16.3 % (24.0-44.0); MEAN CORPUSCULAR HEMOGLOBIN 29.4 pg (27.0-33.0); MEAN CORPUSCULAR HGB CONC 35.5 g/dl (32.0-36.5); MEAN CORPUSCULAR VOLUME 82.9 fl (80.0-96.0); MONO # 0.6 10^3/uL (0.0-0.8); MONO % 8.1 % (2.0-8.0); NEUTROPHILS # 5.4 10^3/uL (1.5-8.5); NEUTROPHILS % 71.6 % (36.0-66.0); PLATELET COUNT, AUTOMATED 250 10^3/uL (150-450); RED BLOOD COUNT 5.68 10^6/uL (4.30-6.10); WHITE BLOOD COUNT 7.5 10^3/uL (4.0-10.0)
[2024-06-15 08:22] LABS: LIPASE 50 U/L (12-53)
[2024-06-15 08:24] LABS: ALBUMIN 3.9 G/DL (3.2-5.2); ALKALINE PHOSPHATASE 36 U/L (40-129); ALT/SGPT 33 U/L (7.0-40); AST/SGOT 29 U/L (<34); BILIRUBIN,DIRECT 0.2 MG/DL (<0.4); BILIRUBIN,TOTAL 0.9 MG/DL (0.3-1.2); BLOOD UREA NITROGEN 22 MG/DL (9-23); CALCIUM LEVEL 9.1 MG/DL (8.3-10.6); CARBON DIOXIDE LEVEL 26 MMOL/L (20-31); CHLORIDE LEVEL 106 MMOL/L (98-107); CREATININE FOR GFR 0.96 MG/DL (0.70-1.30); GLOMERULAR FILTRATION RATE > 60.0 (>49); GLUCOSE, FASTING 111 MG/DL (74-106); POTASSIUM SERUM 5.4 MMOL/L (3.5-5.1); SODIUM LEVEL 139 MMOL/L (136-145); TOTAL PROTEIN 6.9 G/DL (5.7-8.2)
[2024-06-15] MEDS: LIDOCAINE 2% 5ML JELLY UROJET TOP ONE (09:14)
[2024-06-15] MEDS ORDERED: MAALOX 30 ML SUSP *UDC PO PRN (11:25)
[2024-06-15] MEDS ORDERED: MOM 30ML SUSPENSION UDC PO PRN (11:25)
[2024-06-15] MEDS ORDERED: SOD POLYSTYRENE SULFONATE SUSP 15GM 60ML UD PO ONE (11:35)
[2024-06-15 12:20] LABS: HEMATOCRIT 43.4 % (42.0-52.0); HEMOGLOBIN 15.7 g/dl (13.5-17.5)
[2024-06-15] MEDS ORDERED: HOME MED LIST COMPLETE! XX SCH (14:25)
[2024-06-15] MEDS: OMEPRAZOLE 20MG CAP PO SCH (17:12)
[2024-06-15 18:13] LABS: HEMATOCRIT 44.6 % (42.0-52.0); HEMOGLOBIN 16.1 g/dl (13.5-17.5)
[2024-06-15] MEDS: DOCUSATE SODIUM 100MG CAPSULE PO SCH (21:00)
[2024-06-15 21:42] VITALS: BP 142/83; TEMP 97; O2SAT 96
[2024-06-16 00:41] LABS: HEMATOCRIT 43.4 % (42.0-52.0); HEMOGLOBIN 15.5 g/dl (13.5-17.5)
[2024-06-16] MEDS: ACETAMINOPHEN 325 MG TAB PO PRN (03:32)
[2024-06-16 03:50] VITALS: BP 142/82; TEMP 97.2; O2SAT 97
[2024-06-16 05:26] LABS: BASO # 0.1 10^3/uL (0.0-0.2); BASO % 0.5 % (0.0-1.0); EOS # 0.1 10^3/uL (0.0-0.5); EOS % 1.2 % (0.0-3.0); HEMATOCRIT 44.9 % (42.0-52.0); HEMOGLOBIN 15.9 g/dl (13.5-17.5); LYMPH # 1.4 10^3/uL (1.5-5.0); LYMPH % 13.2 % (24.0-44.0); MEAN CORPUSCULAR HGB CONC 35.4 g/dl (32.0-36.5); MEAN CORPUSCULAR VOLUME 81.8 fl (80.0-96.0); MONO % 10.2 % (2.0-8.0); NEUTROPHILS # 7.5 10^3/uL (1.5-8.5); NEUTROPHILS % 73.9 % (36.0-66.0); PLATELET COUNT, AUTOMATED 275 10^3/uL (150-450); RED BLOOD COUNT 5.49 10^6/uL (4.30-6.10); WHITE BLOOD COUNT 10.2 10^3/uL (4.0-10.0)
[2024-06-16 05:54] LABS: BLOOD UREA NITROGEN 18 MG/DL (9-23); CALCIUM LEVEL 8.6 MG/DL (8.3-10.6); CARBON DIOXIDE LEVEL 23 MMOL/L (20-31); CHLORIDE LEVEL 105 MMOL/L (98-107); CREATININE FOR GFR 1.01 MG/DL (0.70-1.30); GLOMERULAR FILTRATION RATE > 60.0 (>49); GLUCOSE, FASTING 96 MG/DL (74-106); MAGNESIUM LEVEL 2.2 MG/DL (1.8-2.4); POTASSIUM SERUM 4.2 MMOL/L (3.5-5.1); SODIUM LEVEL 140 MMOL/L (136-145)
[2024-06-16 08:00] VITALS: BP 119/73; TEMP 97.3; O2SAT 94
[2024-06-16] MEDS: VITAMIN D 50,000 UNITS CAPSULE (ERGOCALCIFEROL 1.25MG) PO SCH (08:10)
[2024-06-16] MEDS: UNRESOLVED PATIENT OWN MED ORDER XX SCH (09:00)
[2024-06-16 12:00] VITALS: BP 145/77; TEMP 97.2; O2SAT 96
== END 2024-06-16 15:41 | disposition home or self-care (01) ==
LOC: M ED 06:14 → M ED INP 06:15 → M MSPAV 21:34
PROVIDERS: ADMIT Internal Medicine; ATTEND Internal Medicine
DX: R31.9 Hematuria, unspecified (principal); E87.5 Hyperkalemia; E55.9 Vitamin D deficiency, unspecified; K21.9 Gastro-esophageal reflux disease without esophagitis; R10.32 Left lower quadrant pain; Z87.891 Personal history of nicotine dependence

== ENCOUNTER → 2024-07-12 | Outpatient (REF) | payer BC ==
[2024-07-12 19:07] LABS: APPEARANCE, URINE CLEAR (CLEAR); BACTERIA, URINE AUTO NEGATIVE (NEGATIVE); BILIRUBIN, URINE AUTO NEGATIVE (NEGATIVE); BLOOD, URINE BLOOD NEGATIVE (NEGATIVE); COLOR, URINE YELLOW (YELLOW); GLUCOSE, URINE (UA) AUTO NEGATIVE (NEGATIVE); KETONE, URINE AUTO NEGATIVE (NEGATIVE); LEUKOCYTE ESTERASE, URINE AUTO NEGATIVE (NEGATIVE); MUCUS, URINE SMALL (NEGATIVE); NITRITE, URINE AUTO NEGATIVE (NEGATIVE); PROTEIN, URINE AUTO NEGATIVE (NEGATIVE); RBC, URINE AUTO 1 /HPF (0-3); SPECIFIC GRAVITY URINE AUTO 1.024 (1.002-1.035); SQUAMOUS EPITHELIAL CELL UR AU 0 /HPF (0-6); UROBILINOGEN, URINE AUTO 0.2 mg/dL (0.0-2.0); WBC, URINE AUTO 0 /HPF (0-3)
== END ==
LOC: M SMT 16:49
PROVIDERS: ATTEND Urology
DX: R31.0 Gross hematuria (principal)

== ENCOUNTER → 2024-08-16 | Outpatient (CLI) | payer BC ==
[~2024-08-16] MED LIST changes: +ISOVUE-370 76% 100ML VIAL As Ordered ONE
== END ==
LOC: M RAD 13:07
PROVIDERS: ATTEND Urology
DX: R31.0 Gross hematuria (principal); N28.1 Cyst of kidney, acquired; K76.0 Fatty (change of) liver, not elsewhere classified; K57.30 Diverticulosis of large intestine without perforation or abscess without bleeding
CPT/HCPCS: 74177; Q9967

== ENCOUNTER → 2025-01-30 | Outpatient (REF) | payer BC ==
[~2025-01-30] MED LIST changes: -ISOVUE-370 76% 100ML VIAL As Ordered ONE
[2025-01-30 17:33] LABS: APPEARANCE, URINE CLEAR (CLEAR); BACTERIA, URINE AUTO NEGATIVE (NEGATIVE); BILIRUBIN, URINE AUTO NEGATIVE (NEGATIVE); BLOOD, URINE BLOOD NEGATIVE (NEGATIVE); GLUCOSE, URINE (UA) AUTO NEGATIVE (NEGATIVE); KETONE, URINE AUTO NEGATIVE (NEGATIVE); LEUKOCYTE ESTERASE, URINE AUTO NEGATIVE (NEGATIVE); MUCUS, URINE SMALL (NEGATIVE); NITRITE, URINE AUTO NEGATIVE (NEGATIVE); PROTEIN, URINE AUTO NEGATIVE (NEGATIVE); RBC, URINE AUTO 0 /HPF (0-3); SPECIFIC GRAVITY URINE AUTO 1.021 (1.002-1.035); SQUAMOUS EPITHELIAL CELL UR AU 0 /HPF (0-6); UROBILINOGEN, URINE AUTO 0.2 mg/dL (0.0-2.0); WBC, URINE AUTO 0 /HPF (0-3)
== END ==
LOC: M SMT 16:52
PROVIDERS: ATTEND Physician Assistant
DX: R31.0 Gross hematuria (principal)